=== PATIENT | female | born 1995 | race Caucasian/White ===

== ENCOUNTER 2024-01-25 08:18 | Emergency (ER) | payer OTHER, SELFPAY ==
[2024-01-25 08:27] VITALS: BP 129/75; PULSE 104; RESP 16; TEMP 37.4; O2SAT 100
--- NOTE | 2024-01-25 08:41 | ED.URI ---
HPI - URI/Sore Throat General Chief Complaint: Upper Respiratory Infection Stated Complaint: Fever/Sore Throat/Vomiting Time Seen by Provider: 01/25/24 08:42 History of Present Illness HPI Narrative: 29-year-old female presented for complaint of headache, body aches, sinus pressure/congestion, sore throat,cough, fever/chills. Onset yesterday. endorses an episode of vomiting this morning. Denies sob, wheezing, or lethargy. Took Excedrin. Related Data Home Medications Medication Instructions Recorded Confirmed lamotrigine 100 mg tablet mg 01/25/24 lisdexamfetamine 30 mg capsule mg 01/25/24 sumatriptan succinate 25 mg tablet mg PO 01/25/24 Allergies Allergy/AdvReac Type Severity Reaction Status Date / Time vancomycin Allergy Rash Verified 01/25/24 08:34 Review of Systems Review of Systems: CONSTITUTIONAL: reports body aches, fever, chills, or sweats. EYES: Denies visual changes, redness, or discharge. ENT: reports rhinorrhea, congestion, sore throat CARDIOVASCULAR: Denies chest pain, palpitations, or edema. RESPIRATORY: Denies dyspnea. GASTROINTESTINAL: Reports nausea, vomiting Denies abdominal pain, or diarrhea. SKIN: Denies rash, itching, or wounds. MUSCULOSKELETAL: Denies back pain, joint pain Exam Narrative: GENERAL: mildly Ill-appearing, no acute distress. EYES: conjunctivae clear ENT: Mucous membranes moist. TMs pearly bliss with normal light reflex bilaterally; no tragal tenderness. Oropharynx not erythematous without lesions. Tonsils not enlarged and without exudate. No drooling, no hoarseness, no trismus, uvula midline. No tripod positioning, hot potato voice, or soft palate swelling. NECK: Supple. No lymphadenopathy CHEST: Clear to auscultation, breath sounds equal. No respiratory distress, speaks in full sentences. HEART: Regular rate and rhythm. No murmur heard. SKIN: Warm, dry, no rash. NEURO: Alert and oriented x3. Course Course Emergency Course: Patient is aware of diagnosis, understands and agrees to treatment plan. Anticipatory guidance given. Patient agrees to follow-up as directed and is aware of reasons to seek care at the emergency department. Portions of this record may have been created with voice recognition software Level of Care: Express Care Visit Vital Signs Vital signs: Vital Signs Temperature 99.4 F 01/25/24 08:27 Pulse Rate 104 H 01/25/24 08:27 Respiratory Rate 16 01/25/24 08:27 Blood Pressure 129/75 01/25/24 08:27 Pulse Oximetry 100 01/25/24 08:27 Oxygen Delivery Room Air 01/25/24 08:27 Temperature 99.4 F 01/25/24 08:27 Pulse Rate 104 H 01/25/24 08:27 Respiratory Rate 16 01/25/24 08:27 Blood Pressure 129/75 01/25/24 08:27 Pulse Oximetry 100 01/25/24 08:27 Oxygen Delivery Room Air 01/25/24 08:27 MDM - URI/Sore Throat MDM Narrative Medical decision making narrative: pOS covid, neg Flu and strep result reviewed with pt. Advise supportive treatments. Patient is appropriate for outpatient treatment and follow-up. Differential Diagnosis Differential diagnosis: Likely upper respiratory infection, viral infection and pharyngitis Discharge Plan Discharge Clinical Impression: COVID-19 Patient Disposition: Home, Self-Care Condition: Stable Instructions: COVID-19 (Coronavirus Disease 2019) (ED) Additional Instructions: Your rapid COVID test was positive today. The following updated recommendations have been made by the CDC and local Health Departments, regarding COVID-19: - When people get sick with a respiratory virus, they stay home and away from others. - Return to normal activities when, for at least 24 hours, symptoms are improving overall, and if a fever was present, it has been gone without use of a fever-reducing medication. - Once people resume normal activities, they are encouraged to take additional prevention strategies for the next 5 days to curb disease spread, such as taking m
[2024-01-25 09:11] LABS: EDINFLUASCREEN Negative; EDINFLUBSCREEN Negative; EDSTREPNEGPOS1 Negative
== END 2024-01-25 09:20 | disposition home or self-care (01) ==
PROVIDERS: Emergency Provider Nurse Practitioner Family
DX: U07.1 COVID-19 (principal)
CPT/HCPCS: 87081; 87426; 87804; 87880; 99213; G0463

== ENCOUNTER 2025-01-14 13:22 | Emergency (ER) | payer OTHER, MEDICAID, SELFPAY ==
--- OUTSIDE RECORDS SUMMARY | 2025-01-14 13:32 | XMS_ITS | Encounter Summary ---
Author Organization [facility] Address [address] [place] [address] Care Team Providers Care Retaining Room Cutter Name Role Phone Maryuri Roblero DEPUTY INSURANCE COMMISSIONER Primary Care Provider [phone] Encounter Details Date Type Department Care Team ([facility] st Contact Info) Description 10/04/2021 MyChart Message Enc [facility] Medical Group Family and Sports Medicine - [place] [address] [place] [address] Maryuri Roblero, DEPUTY INSURANCE COMMISSIONER [address] [place] [address] Need to be seen Social History Tobacco Use Types Packs/Day Years Used Date Smoking Tobacco: Every Day Electronic Cigarettes Smokeless Tobacco: Never Alcohol Use Standard Drinks/Week Comments Yes 0 (1 standard drink = 0.6 oz pur e alcohol) ocassionally PHQ-2 Answer Date Recorded PHQ-2 Score - If the patient scores above 3, please move on to questions 3-9 2 09/13/2021 Comments No Sex and Gender Information Value Date Recorded Sex Assigned at Not on file Legal Sex Female 8:02 PM CDT Gender Identity Female 08/22/2021 6:22 AM CDT Sexual Orientation Straight 08/22/2021 6: 22 AM CDT COVID-19 Exposure Response Date Recorded In the last 10 days, have yo u been in contact with someone who was confirmed or suspected to have Coronavirus/COVID-19? No / Unsure 10/04/2021 9:21 AM CDT documented as of this encounter Functional Status * Calculated C-SSRS Risk Score (Lifetime/Recent) Answer Date of Assessment Author Status No Risk Indicated 10/04/2021 10:22 AM CDT Emily Max RN Active * [place] Suicide Severity Rating Scale (Screener/Recent Self-Report) Question Answer Date of Assessment Author Status 1. Wish to be (Past 1 Month) No 10/04/2021 10:22 AM [place] Deb Max RN Acti ve 2. Non-Specific Active Suicidal Thoughts (Past 1 Month) No 10/04/2021 10:22 AM CDT Deb Max RN Acti ve 6. Suicidal Behavior (Lifetime) No 10/04/2021 10:22 AM CDT Deb Max RN Acti ve documented as of this encounter Progress Notes * Janett Oh MA - 10/04/2021 11:45 AM CDT Patient sent this message this morning, then called the office and scheduled an apt. Pt saw deb this morning. Please see encounter from today for any questions. documented in this encounter Plan of Treatment Not on file documented as of this encounter Visit Diagnoses Not on filedocumented in this encounter Additional Health Concerns Assessment Noted Time PHQ-9 Depression Total Score: 14 022 3:56 PM CDT documented as of this encounter Care Teams Retaining Room Cutter Relationship Specialty Start Date End Date Maryuri Roblero NP [address] [place] [address] PCP - General Nurse Practitioner Family 08/23/21 documented as of this encounter
--- OUTSIDE RECORDS SUMMARY | 2025-01-14 13:32 | XMS_ITS | Encounter Summary ---
Author Organization [facility] Address [address] [place] [address] Phone Care Team Providers Care Telephone Installer Name Role Phone Bessie Patel MD Primary Care Provider [phone] Ilsa Lara MD, Bhavesh Gutiérrez Unavailable [phone] Maryuri Roblero NP Primary Care Provider [phone] Encounter Details Date Type Department Care Team (Latest Contact Info) Description 03/15/2017 Orders Only [facility] CONVERSION Scanning, Provider Social History Tobacco Use Types Packs/Day Years Used Date Smoking Tobacco: Never Comments Unknown Sex and Gender Information Value Date Recorded Sex Assigned at Not on file Legal Sex Female 10:10 PM OPERATIONS DIRECTOR Gender Identity Not on file Sexual Orientation Not on file documented as of this encounter Plan of Treatment Not on file documented as of this encounter Procedures Procedure Name Priority Date/Time Associated Diagnosis Comments OBSTETRIC/GYNECOLOGY ULTRASONOGRAPHY REPORT 03/15/2017 11:50 AM CDT documented in this encounter Results * OBSTETRIC/GYNECOLOGY ULTRASONOGRAPHY REPORT (03/15/2017 11:50 AM CDT) Anatomical Region Laterality Modality Ultrasound us Provider Scanning IMG OB US PROCEDURES Final Res ult documented in this encounter Visit Diagnoses Not on filedocumented in this encounter Additional Health Concerns Infection Onset Date Last Indicated Resolved Time COVID: Suspected 06/02/2020 06/02/2020 06/02/2020 11:41 PM OPERATIONS DIRECTOR COVID19 06/02/2020 06/02/2020 06/16/2020 3:07 AM OPERATIONS DIRECTOR COVID: Recovered Comment:Added based on recent COVID infection. 06/16/2020 06/22/2020 10/14/2020 3:05 AM C DT documented as of this encounter Care Teams Telephone Installer Relationship Specialty Start Date End Date Bessie Patel MD [address] [facility] [address] [place] [address] PCP - General 07/10/16 06/01/20 Maryuri Roblero NP [address] [place] [address] PCP - General 06/02/20 [place] [address] [address] [facility] [address] [facility] [address] [place] [address] Surgeon Plastic Surgery 12/25/19 documented as of this encounter
--- OUTSIDE RECORDS SUMMARY | 2025-01-14 13:33 | XMS_ITS | Encounter Summary ---
Author Organization [facility] Address [address] [place] [address] Care Team Providers Care Healthcare Administrator Name Role Phone Maryuri Roblero MACHINE BUNCH MAKER Primary Care Provider [phone] Encounter Details Date Type Department Care Team (Late st Contact Info) Description 08/19/2024 MyCClutcht Message Enc [facility] Medical Group Family and Sports Medicine - [place] [address] [place] [address] Maryuri Roblero, MACHINE BUNCH MAKER [address] [place] [address] Physical Social History Tobacco Use Types Packs/Day Years Used Date Smoking Tobacco: Former Electronic Cigarettes Quit: 05/25/2023 Passive Smoke Exposure: Past Smokeless Tobacco: Never Alcohol Use Standard Drinks/Week Comments Not Currently 0 (1 standard drink = 0.6 oz pur e alcohol) PHQ-2 Answer Date Recorded Patient Health Questionnaire-2 Score 0 12/27/2022 Comments No Sex and Gender Information Value Date Recorded Sex Assigned at Not on file Legal Sex Female 8:02 PM CDT Gender Identity Female 08/22/2021 6:22 AM CDT Sexual Orientation Straight 08/22/2021 6: 22 AM CDT documented as of this encounter Plan of Treatment Not on file documented as of this encounter Visit Diagnoses Not on filedocumented in this encounter Additional Health Concerns Assessment Noted Time PHQ-9 Depression Total Score: 13 023 2:12 PM CDT documented as of this encounter Care Teams Healthcare Administrator Relationship Specialty Start Date End Date Maryuri Roblero NP [address] [place] [address] PCP - General Nurse Practitioner Family 08/23/21 documented as of this encounter
--- OUTSIDE RECORDS SUMMARY | 2025-01-14 13:33 | XMS_ITS | Encounter Summary ---
Author Organization [facility] Address [address] [place] [address] Care Team Providers Care Key Person Name Role Phone Maryuri Roblero RESOURCE ROOM TEACHER Primary Care Provider [phone] Encounter Details Date Type Department Care Team ([facility] st Contact Info) Description 06/13/2022 MyChart Message Enc [facility] Medical Group Family and Sports Medicine - [place] [address] [place] [address] Maryuri Roblero, RESOURCE ROOM TEACHER [address] [place] [address] Question Social History Tobacco Use Types Packs/Day Years [...] Noted Time PHQ-9 Depression Total Score: 14 08/23/ 022 3:56 PM CDT documented as of this encounter Care Teams Key Person Relationship Specialty Start Date End Date Maryuri Roblero NP [address] [place] [address] PCP - General Nurse Practitioner Family 08/23/21 documented as of this encounter
--- OUTSIDE RECORDS SUMMARY | 2025-01-14 13:33 | XMS_ITS | Encounter Summary ---
Author Organization [facility] Address [address] [place] [address] Care Team Providers Care Inserter Name Role Phone Maryuri Roblero CHASSIS WIRER Primary Care Provider [phone] Encounter Details Date Type Department Care Team ([facility] st Contact Info) Description 12/26/2021 MyChart Message Enc [facility] Medical Group Family and Sports Medicine - [place] [address] [place] [address] Maryuri Roblero, CHASSIS WIRER [address] [place] [address] [place] Social History Tobacco Use Types Packs/Day Years [...] suspected to have Coronavirus/COVID-19? No / Unsure 12/15/2021 2:24 PM CDT documented as of this encounter Plan of Treatment Not on file documented as of this encounter Visit Diagnoses Not on filedocumented in this encounter Additional Health Concerns Assessment Noted Time PHQ-9 Depression Total Score: 14 022 3:56 PM CDT documented as of this encounter Care Teams Inserter Relationship Specialty Start Date End Date Maryuri Roblero, CHASSIS WIRER [address] [place] [address] PCP - General Nurse Practitioner Family 08/23/21 documented as of this encounter
--- OUTSIDE RECORDS SUMMARY | 2025-01-14 13:33 | XMS_ITS | Encounter Summary ---
Author Organization [facility] Address [address] [place] [address] Care Team Providers Care Cherry Picker Operator Name Role Phone Maryuri Roblero SUPERVISOR VOLUNTEER SERVICES Primary Care Provider [phone] Encounter Details Date Type Department Care Team (Late st Contact Info) Description 12/15/2021 MyChart Message Enc [facility] Medical Group Family and Sports Medicine - [place] [address] [place] [address] Maryuri Roblero, SUPERVISOR VOLUNTEER SERVICES [address] [place] [address] Medicine not covered Social History Tobacco Use Types Packs/Day Years [...] PM CDT documented as of this encounter Progress Notes * Meg Bean MA - 12/19/2021 12:12 PM CDT New script sent. See previous encounter. * Altagracia Grant CMA - 12/19/2021 10:51 AM CDT PA pending. * Maryuri Roblero NP - 12/18/2021 7:25 AM CDT Was the PA denied? * Meg Bean MA - 12/16/2021 10:28 AM CDT Patient is requesting a different medication medication since insurance will not cover current ADHDscript. documented in this encounter Plan of Treatment Not on file documented as of this encounter Visit Diagnoses Not on filedocumented in this encounter Additional Health Concerns Assessment Noted Time PHQ-9 Depression Total Score: 14 08/23/ 022 3:56 PM CDT documented as of this encounter Care Teams Cherry Picker Operator Relationship Specialty Start Date End Date Maryuri Roblero NP [address] [place] [address] PCP - General Nurse Practitioner Family 08/23/21 documented as of this encounter
--- OUTSIDE RECORDS SUMMARY | 2025-01-14 13:33 | XMS_ITS | Clinical Summary ---
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 Name Role Phone Ilsa Lara MD, Bhavesh Marla Unavailable [phone] Maryuri Roblero NP Primary Care Provider [phone] Allergies No known active allergies Medications hydrOXYzine (ATARAX) 10 mg tablet Take 1 tablet (10 mg total) by mouth as needed for itching Active doxycycline hyclate 100 mg capsule TAKE 1 CAPSULE BY MOUTH TWICE A DAY FOR 5 DAYS 2 Active Adderall XR 30 mg 24 hr capsule 3 Active lamoTRIgine (LaMICtal) 150 mg tablet Take 1 tablet (150 mg total) by mouth 2 (two) times a day 3 Active FLUoxetine (PROzac) 20 mg capsule Take 1 capsule (20 mg total) by mouth daily Active norelgestromin-ethi n.estradioL (ORTHO EVRA) 150-35 mcg/24 hrIndications:Pregn selena Contraception Apply 1 patch each week for 3 weeks, then remove for 1 week. 3 patch 12 3 Active ondansetron ODT (ZOFRAN-ODT) 4 mg disintegrating tablet Take 1 tablet (4 mg total) by mouth every 8 (eight) hours as needed for nausea or vomiting 20 tablet 3 Active Active Problems Problem Noted Date Diagnosed Date Bipolar disorder, in partial remission, most recent episode depressed 09/30/2020 PTSD (post-traumatic stress disorder) 09/30/2020 Gastroesophageal reflux disease without esophagi tis 09/27/2017 Surgical History Surgery Date Site/Laterality Comments MI CORRJ HLX VLGS BNCTY SESMDC W/DOUBLE OSTEOTOMY 05/21/2016 - 05/20/2017 Left Hallux Valgus (Bunion) Correction - (Added by [employer]) CHOLECYSTECTOMY 05/21/2017 - 05/20/2018 DILATION AND CURETTAGE OF UTERUS 05/21/2017 - 05/20/2018 FOOT SURGERY 05/21/2016 - 05/20/2017 Left bone spur COMBINED AUGMENTATION MAMMAPLASTY AND ABDOMINOPLASTY 12/20/2019 - 01/19/2020 VULVA SURGERY Medical History Medical History Date Comments Anxiety Migraines Delayed emergence from general anesthesia mild Addiction to drug (HCC) Anemia Depression GERD (gastroesophageal reflux disease) Kidney stone Obesity Allergic rhinitis Peptic ulceration Urinary tract infection Family History Medical History Relation Name Comments Alcohol abuse Father Hypertension Father Family history of hypertension - (Added by [employer]) Mental illness Father Breast cancer Maternal Grandmother Diabetes Mother Family history of diabetes mellitus - (Added by [employer]) Mental illness Mother Stroke Mother Family history of cerebrovascular accident (CVA) - (Added by [employer]) Breast cancer Other Heart disease Other Family history of cardiac disorder - Relation: Grandmother (Added by [employer]) Mental illness Sister Relation Name Status Comments Father Maternal Grandmother Mother Other Sister Social History Tobacco Use Types Packs/Day Years Used Date Smoking Tobacco: Every Day E-cigarettes Smokeless Tobacco: Never Tobacco Cessation:Ready to Q uit: Not Asked; Counseling Given: Not Answered Alcohol Use Standard Drinks/Week Comments Yes 0 (1 standard drink = 0.6 oz pur e alcohol) monthly or less Personal Safety Answer Date Recorded Have you ever been in or are you currently in a harmful physical or emotional relationship or is someone making you feel afraid or unsafe? Denies 07/17/2023 Comments No Sex and Gender Information Value Date Recorded Sex Assigned at Not on file Legal Sex Female 10:10 PM RN ADMIT Gender Identity Not on file Sexual Orientation Not on file Obstetrics History Para Term AB IAB SAB Ectopic Multiple Livin g Live Births 2 2 2 2 2 Date Outcome GA Total Labor Labor/2nd/3rd Weight Sex Type Anes PTL Janessa A1 A5 Name Clin 2014 36w 0d 2.211 kg (4 lb 14 oz) F Vag-S pont Y Livin g Complications:Pre eclampsia 2017 34w 4d 0h 29m 0h 04m/0h 25m 2.163 kg (4 lb 12.3 oz) F Vag-S pont Epidur al Y Livin g 9 9 SLOAN, GIRL DARBY Johns tracy Perales nski CNM Delivery Location:[facility] Last Filed Vital Signs Vital Sign Reading Time Taken Comments Blood Pressure 115/76 07/17/2023 7:05 PM RN ADMIT Pulse 79 07/17/2023 7:05 PM RN ADMIT Temperature 37.1 C (98.8 F) 07/17/2023 7:05 PM RN ADMIT Respiratory Rate 18 07/17/2023 7:05 PM RN ADMIT Oxygen Saturation 99% 07/17/2023 7:05 PM RN ADMIT Inhaled Oxygen Concentration - - Weight 64.8 kg (142 lb 13.7 oz) 07/17/2023 7:05 PM RN ADMIT Height 160 cm (5' 2.99) 09/05/2022 3:19 PM CDT Body Mass Index 25.31 09/05/2022 3:19 PM CDT Plan of Treatment Health Maintenance Due Date Last Done Comments Depression Screening 1995 Pneumococcal vaccine <65 (1 of 2 - PCV) 01/25/2016 Cervical Cancer Screening 06/01/2022 06/01/2021 Regular Well Visit/Exam 18-64 09/06/2023 09/05/2022, 06/01/2021 Covid-19 Vaccine (3 - 2023-2 5 season) 2024 09/30/2020, 05/19/2020 HPV Vaccines (1 - 3-dose SCD M series) 01/25/2024 Influenza Vaccine (#1) 2025 , 04/19/2020, 04/09/2019, Additional history exists DTaP/Tdap/Td Vaccine (8 - Td or Tdap) 06/24/2027 06/24/2017, 04/07/2016, 07/29/2014, Additional history exists Varicella Vaccines Completed 05/03/2007, 02/17/1998 Hepatitis B Screening Completed 06/23/2016 , 1995, 1995, Additional history exists Hepatitis C Screening Completed 09/06/2022 Medical Devices Implanted Type Area Ballpoint Pen Assembly Machine Operator Device Identifier Shelf Expiration Date Model / Serial / Lot [employer] Ssf-450 Natrelle Inspira Smooth Shell Surface Full Profile Implant 450cc Latex Free - [id number] - [id number] Implanted:Qty : 1 on 12/25/2019 by Bhavesh Rosenbaum Jr., MD at [facility] Right: Breast [employer] [id number] 08/31/2024 SSF-450 / [id number] / [id number] Description:*NO CHARGE IMPLA NT PROVIDED BY THE SURGEON KV* [employer] Ssf-485 Natrelle Inspira Smooth Shell Surface Soft Touch Implant 485cc Latex Free - [id number] - [id number] Implanted:Qty : 1 on 12/25/2019 by Bhavesh Rosenbaum Jr., MD at [facility] Left: Breast [employer] [id number] 06/25/2024 SSF-485 / [id number] / [id number] Description:*NO CHARGE IMPLA NT PROVIDED BY THE SURGEON KV* Procedures Procedure Name Priority Date/Time Associated Diagnosis Comments HEPATITIS PANEL, ACUTE Routine 09/06/2022 2:37 PM CDT Routine screening for STI (sexually transmitted infection) PAP WITH REFLEX TO HIGH RISK HPV Routine 06/01/2021 1:34 PM RN ADMIT Well woman exam Screening for STD (sexually transmitted disease) from Last 3 Months or Most Recently Relevant to Health Maintenance Results * Hepatitis panel, acute (09/06/2022 2:37 PM CDT) Hep A IgM Nonreactive Nonreactive [facility] Comment: Interpretive Data: If Hep A IgM Ab is reported as Equivocal, a new sample should be drawn in two weeks for testing. Current interpretive data was last revised on 19. Hep B core IgM Nonreactive Nonreactive [facility] Comment: Interpretive Data If HepB Core IgM Ab is reported as Equivocal, a new sample should be drawn in two weeks for testing. Current interpretive data was last revised on 19. Hep C Ab Nonreactive Nonreactive [facility] Comment: Interpretive Data Nonreactive: Antibodies to HCV not detected. Does NOT exclude the possibility of recent exposure to HCV. Equivocal: Equivocal for HCV antibodies. Supplemental molecular testing will be automatically performed to determine infection status in accordance with current CDC screening recommendations. Reactive: Positive for HCV antibodies. This may represent current or past HCV infection. Supplemental molecular testing will be automatically performed to determine current infection status in accordance with current CDC screening recommendations. Interpretive data was last revised on 2019. HepBsAg Nonreactive Nonreactive [facility] Blood 09/06/2022 2:37 PM CDT 09/06/2022 5:27 PM CDT us Tracey Jenkins NP LAB MICROBIOLOGY - GENERAL ORDER OFELIA Final Result [facility] [address] [facility] Department [place] [address] * (ABNORMAL) Pap with reflex to High Risk HPV (06/01/2021 1:34 PM RN ADMIT) Swab (Pap test) 06/01/2021 1 :34 PM RN ADMIT 06/03/2021 1:34 PM RN ADMIT Narrative PATHOLOGY [facility] - 06/10/2021 9:07 AM RN ADMIT [facility] Department of Pathology [address] [place], [place] [id number] Final Report Note to Patients: This report may contain a detailed description of human tissue sent by a health care provider to the laboratory for pathologic evaluation. The content of this report is essential for diagnosis and may provide important critical findings. This information may be unfamiliar to patients to review without a medical professional present. It is advised that the patient review this report in the presence of a health care provider who can answer questions and explain the details. Patient Name: CALE SLOAN Address: [address] [place] [address] Gender: F : 1995 (Age: 26) Service: Laboratory Location: [facility] #: [id number] Patient Type: [facility] SPECIMEN Taken: 06/01/2021 Received: 06/03/2021 Accessioned:: 06/06/2021 Reported: 06/10/2021 Physician(s): Sarah Ruth M.D. [facility] Diagnosis: Source of Specimen: Imaged Thinprep Pap Test w/ Reflex HPV - Home Health Cna Cytologic Material Specimen Adequacy: - Satisfactory for evaluation; endocervical/transformation zone component present General Category: - Epithelial cell abnormality Interpretation/Results: - Low grade squamous intraepithelial lesion (LSIL) encompassing HPV/mild dysplasia/FIONA I UDAY Dao(ASCP) Joe Trammell M.D. Report Electronically Reviewed and Signed Out By Joe Trammell M.D. 06/10/2021 09:07:18 Specimen(s) Received: A: Imaged Thinprep Pap Test w/ Reflex HPV - Home Health Cna Cytologic Material Clinical History: Contraceptive History: IUD The Pap test is a screening test used to aid in the detection of cervical cancer and its precursors. It should not be the sole means by which malignant and premalignant lesions are diagnosed. Both false negative and false positive results may occur. It also has poor sensitivity for the detection of endometrial lesions and should not be used to evaluate suspected endometrial abnormalities. For these reasons it is most important to obtain Pap tests at regular intervals. The performance characteristics of some immunohistochemical stains, fluorescence in-situ hybridization tests and immunophenotyping by flow cytometry cited in this report (if any) were determined by the Surgical Pathology Department at [facility] as part of an ongoing quality assurance coordinator program and in compliance with federally mandated regulations drawn from the Clinical Laboratory Improvement Act of 1988 (CLIA '88). Some of these tests rely on the use of analyte specific reagents and are subject to specific labeling requirements by the US Food and Drug Administration. Such diagnostic tests may only be performed in a facility that is certified by the Department of Health and Human Services as a high complexity laboratory under CLIA '88. The FDA has determined that such clearance or approval is not necessary. This test is used for clinical purposes. It should not be regarded as investigational or for research. Nevertheless, federal rules concerning the medical use of analyte specific reagents require that the following disclaimer be attached to the report: This test was developed and its performance characteristics determined by the Surgical Pathology Department [facility]. It has not been cleared or approved by the U. S. Food and Drug Administration. Sarah Ruth MD LAB CYTOLOGY ORDERABLES Final Re sult [facility] Organization Address City/State/ZIP Co de Phone Number [facility] from Last 3 Months or Most Recently Relevant to Health Maintenance Insurance [employer]PA [facility] CORE IDPA [place] [id number] [facility] C[facility] [employer] ACCESS IDPA Care Teams Mold Maker Apprentice Relationship Specialty Start Date End Date Maryuri Roblero NP [address] [place] [address] PCP - General 06/02/20 [place] [address] [address] [facility] [address] [facility] [address] [place] [address] Surgeon Plastic Surgery 12/25/19
--- OUTSIDE RECORDS SUMMARY | 2025-01-14 13:33 | XMS_ITS | Clinical Summary ---
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 180 Lozenge 1 03/04/20 24 Active Additional Information Patient not taking.Reported on 01/05/2025 pantoprazole (PROTONIX) 40 mg Tablet, Delayed Release (E.C.)Indication s:Gastroesophage al reflux disease, unspecified whether esophagitis present,Nausea,B loating Take 1 Tablet (40 mg) by mouth daily. 11/01/19 25 Active lamoTRIgine (LaMICtal) 100 mg tabletIndication s:Bipolar disorder, in partial remission, most recent episode depressed (CMS/HCC) TAKE 1 TABLET (100 MG) BY MOUTH DAILY. 100 Tablet 3 11/29/19 25 Active Ethinyl Estradiol-Norelg estrom (Xulane) 150-35 mcg/24 hr Patch Weekly PATCH Apply 1 Patch to skin as directed see administration instructions. 9 Patch 3 12/11/19 25 Active lisdexamfetamine (Vyvanse) 40 mg capsuleIndicatio ns:Attention deficit hyperactivity disorder (ADHD), combined type Take 1 Capsule (40 mg) by mouth daily in the morning. Max Daily Amount: 40 mg 30 Capsule 12/30/19 25 Active linaCLOtide (LINZESS) 72 mcg Capsule capsule Take 1 Capsule (72 mcg) by mouth daily before breakfast. 30 Capsule 3 01/06/20 25 Active atogepant (Qulipta) 60 mg Tablet Take 1 Tablet (60 mg) by mouth daily. 30 Tablet 3 01/09/20 25 Active galcanezumab-gnl m (Emgality Pen) 120 mg/mL Pen Injector Inject 1 mL by subcutaneous injection every 30 days. 1 mL 01/09/20 25 Active SUMAtriptan (IMITREX) 25 mg tabletIndication s:Chronic migraine without aura without status migrainosus, not intractable Take 1 Tablet (25 mg) by mouth 1 time daily as needed for Migraine. may repeat in 2 hours; max dose 200mg in 24 hours 9 Tablet 1 01/09/20 25 Active Linzess 290 mcg capsuleIndicatio ns:Irritable bowel syndrome with constipation Take 1 Capsule (290 mcg) by mouth daily before breakfast. 90 Capsule 1 10/28/19 25 025 Discontin ued(Alter srinath therapy prescribe d) SUMAtriptan (IMITREX) 25 mg tabletIndication s:Chronic migraine without aura without status migrainosus, not intractable Take 1 Tablet (25 mg) by mouth 1 time daily as needed for Migraine. may repeat in 2 hours; max dose 200mg in 24 hours 9 Tablet 1 11/01/19 25 025 Discontin ued(Reord er) lisdexamfetamine (Vyvanse) 40 mg capsuleIndicatio ns:Attention deficit hyperactivity disorder (ADHD), combined type Take 1 Capsule (40 mg) by mouth daily in the morning. Max Daily Amount: 40 mg 30 Capsule 11/27/19 25 025 Discontin ued(Reord er) galcanezumab-gnl m (Emgality Pen) 120 mg/mL Pen InjectorIndicati ons:Intractable chronic migraine with aura with status migrainosus Inject 1 mL by subcutaneous injection every 30 days. 1 mL 11 11/27/19 25 025 Discontin ued(Reord er) Active Problems Problem Noted Date Diagnosed Date Engages in binge consumption of alcohol 12/06/19 24 Attention deficit hyperactiv ity disorder (ADHD), combined type 11/01/2023 Overview (11/01/2023): Dx in 2019 Saw Psychiatry for dx. No longer following with them. Previously controlled with Vyvanse. Stopped medication six months ago when PCP stopped filling meds. Having trouble with focus at work. Does not tolerate Adderall. Chronic migraine without aur a without status migrainosus, not intractable 11/01/2023 Overview (11/01/2023): Dx at age 8 Has a CLEMONS several times a week Saw Neurology in the past Sumatriptan and Excedrin is helpful Tylenol and Motrin not helpful Nurtec and propranolol without improvement Transaminitis 07/14/2023 Overview (11/01/2023): Found during hospitalization on 06/2023 for ovarian hyperstem Abdominal ultrasound was normal Abdominal CT on 07/2023 showed: Hyperstimulated appearance of the ovaries without evidence of active bleeding. Increased prominence of splenic veins, raises concern for portal hypertension. Was referred to GI. Will establish with them 11/2023 Hemoperitoneum 07/12/2023 Overview (11/01/2023): Hospitalized 07/2023 for hemoperitoneum and ovarian hyerstem Following with [employer] Bipolar disorder, in partial remission, most recent episode depressed 09/30/2020 Overview (11/01/2023): Dx after suicide attempt 06/02/2019. Was taking Lamotrigine 150 mg BID and Prozac 20 mg. Her PCP stopped medication about six months ago. Mood is down. Denies SI. Has taken Trazodone, Celexa, Lexapro, Abilify, Propranolol, and hydroxyzine in the past PTSD (post-traumatic stress disorder) 09/30/2020 Overview (11/01/2023): Dx after suicide attempt 06/02/2019. Was following with a therapist. This was helpful. Needs to find a new one. THOMPSON (generalized anxiety disorder) 02/25/2019 Overview (11/01/2023): Dx after suicide attempt 06/02/2019. Was taking Fluoxetine. Stopped mediation six months ago when PCP stopped prescribing. Having a lot of anxiety. Gastroesophageal reflux disease without esophagi tis 02/25/2019 Overview (11/01/2023): Worsening with weight gain Currently taking Omeprazole 20 mg for the last month. Encounters Date Type Department Care Team Description 01/12/2025 Telephone [facility] [employer] - [facility] [address] [place] [address] Juanis Parada NP Labs Only (/) 01/08/2025 8:00 AM CDT Office Visit [facility] Neurology [address] [place] [address] [address] [place] [phone] Krystal Martino MD Chronic migraine without aura without status migrainosus, not intractable 01/07/2025 Telephone [facility] Gastroenterology [facility] [address] [facility] [address] [place] [phone] Clarita Vaughan PA Care Plan 01/05/2025 1:00 PM CDT Office Visit [facility] Gastroenterology [facility] [address] [facility] [address] [place] [address] Clariat Vaughan PA Irritable bowel syndrome with constipation (Primary Dx); Esophageal dysphagia 12/27/2024 Refill [facility] [address] [phone] Adam Monroy DO Attention deficit hyperactivity disorder (ADHD), combined type 12/24/2024 External Device Data STL ABSTRACTION Provider, Abstract 12/10/2024 8:15 AM CDT Telephone Check Up [facility] [employer] - [facility] [address] [place] [address] Juanis Parada NP Encounter for initial prescription of transdermal patch hormonal contraceptive device (Primary Dx) 12/05/2024 Orders Only [facility] [employer] - [facility] [address] [facility] [address] [place] [phone] Provider, Abstract 11/28/[address] [phone] Lena Hernandez NP Bipolar disorder, in partial remission, most recent episode depressed ([facility]/HCC) 11/25/[address] [phone] Adam Monroy DO Intractable chronic migraine with aura with status migrainosus 11/25/[address] [phone] Lena Hernandez NP Bipolar disorder, in partial remission, most recent episode depressed ([facility]/HCC) 11/25/[address] [phone] Wu Aguilera MD Attention deficit hyperactivity disorder (ADHD), combined type 11/18/2024 External Device Data STL ABSTRACTION Provider, Abstract 11/04/2024 Results Follow-Up [facility] [employer] - [facility] [address] [facility] [address] [place] [phone] Mary Wilson MD CERV/VAG CYTO AGE BASED SCREEN PAP W CT/NG, TRICH 11/04/2024 Results Follow-Up [address] [phone] Lena Hernandez NP CBC WITH DIFFERENTIAL, COMPREHENSIVE METABOLIC PANEL, TSH REFLEXIVE, Additional followed-up results: 2 10/31/2024 3:00 PM CDT Office Visit [address] [phone] Lena Hernandez NP Encounter for routine adult health examination without abnormal findings (Primary Dx); Gastroesophageal reflux disease, unspecified whether esophagitis present; Nausea; Bloating; Irregular periods; Initiation of OCP (BCP); Chronic migraine without aura without status migrainosus, not intractable; Bipolar disorder, in partial remission, most recent episode depressed (CMS/HCC); THOMPSON (generalized anxiety disorder); Transaminitis; Attention deficit hyperactivity disorder (ADHD), combined type; Screening for cardiovascular condition; Screening for diabetes mellitus 10/30/2024 12:30 PM CDT Office Visit [facility] [employer] - [facility] [address] [place] [phone] Mary Wilson MD Well woman exam with routine gynecological exam (Primary Dx); Screening for cervical cancer; Screening for HPV (human papillomavirus); Routine screening for STI (sexually transmitted infection) 10/24/2024 Refill [facility] Gastroenterology [facility] [address] [facility] [address] [place] [phone] Pari Humphrey DO Gastroesophageal reflux disease, unspecified whether esophagitis present; Nausea; Bloating; Irritable bowel syndrome with constipation 10/24/2024 Refill [facility] [address] [place] [phone] Adam Monroy DO Bipolar disorder, in partial remission, most recent episode depressed (CMS/HCC); Initiation of OCP (BCP); Intractable chronic migraine with aura with status migrainosus; Attention deficit hyperactivity disorder (ADHD), combined type from Last 3 Months Immunizations Immunization Administration Dates Next Due (ADACEL/BOOSTRIX)(10 YR UP) TDAP VACCINE, 0.5ML, IM 06/24/2017,04/07/2016,07/29/2014 (GARDASIL 9)(9-45 YRS) HUMAN PAPILLOMAVIRUS VACCINE, TYPES 6, 11, 16, 18, 31, 33, 45, 52, 58, NONAVALENT (9VHPV), 2 OR 3 DOSE, IM 09/21/2022 (INFANRIX)(6 WKS-6 YRS) DIPT HERIA, TETANUS TOXOIDS, AND ACCELLULAR PERTUSSIS VACCINE (DTAP), 0.5 ML IM 01/18/1999,1997,1997,06/03 (IPOL)(6 WKS AND UP) POLIOVI MARY VACCINE, INACTIVATED (IPV), 3 DOSE, SUBCUT OR IM 04/07/2016 (M-M-R II/PRIORIX)(12 MO UP) MEASLES, MUMPS AND RUBELLA VIRUS VACCINE, 0.5 ML IM/SUBCUT 06/23/2016,04/07/2016,02/17/1998 (PFIZER)(12 YR UP) COVID-19 VACCINE - EMERGENCY USE AUTHORIZATION, MRNA, [id number](PF) 30 MCG/0.3 ML IM SUSP 05/19/2020 (PROQUAD)(12 MOS-12 YRS)JERI LES, MUMPS, RUBELLA, AND VARICELLA VIRUS VACCINE. 0.5 ML, SUBCUT 02/17/1998 (RECOMBIVAX HB/ENGERIX-B)(0- 19 YRS) HEPATITIS B VACCINE 5 MCG/0.5 ML OR 10 MCG/0.5 ML PED OR ADOL 3 DOSE (PF), IM 06/23/2016,04/07/2016,1997 (VARIVAX)(12 MOS UP)VARICELL A VIRUS VACCINE (PF) 0.5 ML, SUB CUT 05/03/2007 Adenovirus Vaccine Type 4 04/07/2016 HIB, Unspecified Formulation 01/18/1999,07/30/18 98 Hepatitis A Vaccine 05/03/2007 Hepatitis B and Haemophilus Influenzae Type B Vaccine (Hib-HepB)IM 1997,1997 INFLUENZA VACCINE QUADRIVALE NT 6 MOS UP PF IM 04/29/2018 INFLUENZA VACCINE TRIVALENT SPLIT VIRUS, (6 MOS UP), 0.5ML (PF), IM 03/04/2024 Influenza Seasonal Unspecifi ed Formulation IM 04/19/2020,04/20/2017,07/13/2015 Influenza Vaccine Tri Split 4+ Pf Im 04/07/2016 Influenza, Unspecified Formulation 02/24/2021, Meningococcal Polysaccharide Vaccine SQ 04/07/2016 Poliovirus Vaccine Live Oral SCHIP 1997,,1997 Family History Medical History Relation Name Comments Healthy Brother 1 Jaylen Headaches Brother 2 Clay (Rodrigo) Healthy Brother 2 Clay (Rodrigo) Healthy Daughter 1 Bri Anxiety Daughter 2 Isabel Healthy Daughter 2 Isabel Seizure Disorder Daughter 2 Isabel Anxiety Father Depression Father Headaches Father Hypertension Father Obesity Father Breast Cancer Maternal Grandmother ADHD Mother Mom was adopted Anxiety Mother Mom was adopted Depression Mother Mom was adopted Obesity Mother Mom was adopted Diabetes Paternal Grandfather Hypertension Paternal Grandfather Anxiety Sister 1 Alivia Depression Sister 1 Alivia Healthy Sister 1 Alivia Obesity Sister 1 Alivia Healthy Sister 2 Geni Healthy Sister 3 Maddie Colon Cancer Neg Hx Ovarian Cancer Neg Hx Relation Name Status Comments Brother 1 Jaylen Alive Brother 2 Clay (Rodrigo) Alive Daughter 1 Bri Alive Daughter 2 Isabel Alive Father Alive Maternal Grandfather unknown Other Maternal Grandmother Alive Mother Mom was adopted Alive Paternal Grandfather Alive Paternal Grandmother Alive Sister 1 Alivia Alive Sister 2 Geni Alive Sister 3 Maddie Alive Social History Tobacco Use Types Packs/Day Years Used Date Smoking Tobacco: Former Cigarettes 0.5 1 Passive Smoke Exposure: Never Smokeless Tobacco: Never Tobacco Cessation:Counseling Given: Not Answered Alcohol Use Standard Drinks/Week Comments Not Currently 0 (1 standard drink = 0.6 oz pur e alcohol) several drinks twice year Feeling Safe Answer Date Recorded Are you in a relationship wi th someone who hurts you emotionally and/or physically? No 05/02/2024 Comments No Sex and Gender Information Value Date Recorded Sex Assigned at Female 12/04/2023 8:39 AM CDT Legal Sex Female 9:55 AM CDT Gender Identity Female 12/04/2023 8:39 AM CDT Sexual Orientation Not on file Last Filed Vital Signs Vital Sign Reading Time Taken Comments Blood Pressure 122/82 01/08/2025 8:05 AM CDT Pulse 72 01/08/2025 8:05 AM CDT Temperature 37.4 C (99.3 F) 10/31/2024 2:49 PM CDT Respiratory Rate 18 05/02/2024 9:00 AM CUSTOMS DIRECTOR Oxygen Saturation 99% 01/08/2025 8:05 AM CDT Inhaled Oxygen Concentration - - Weight 67.6 kg (149 lb) 01/12/2025 3:41 PM CDT Height 160 cm (5' 3) 01/12/2025 3:41 PM CDT Body Mass Index 26.39 01/12/2025 3:41 PM CDT Plan of Treatment Upcoming Encounters Date Type Department Care Team (Latest Contact Info) Description 8:00 AM CDT Hospital Encounter [facility] [address] [place] [phone] Pari Humphrey, DO [address] [facility] [address] [place] [phone] Esophageal dysphagia 5 8:00 AM CDT - 5 8:30 AM CDT Surgery [facility] [address] [place] [phone] Pari Humphrey, DO [address] [facility] [address] [place] [address] ESOPHAGOGASTRODUODENOSCOPY 5 10:15 AM CUSTOMS DIRECTOR Procedure visit [facility] [employer] CLE[employer]ER - [address] [facility] [address] [place] [phone] Juanis Parada, IMAGING ANALYST [address] [facility] [address] [place] [phone] 5 8:40 AM CUSTOMS DIRECTOR Office Visit [facility] Gastroenterology [facility] [address] [facility] [address] [place] [phone] Pari Humphrey, DO [address] [facility] [address] [place] [address] 5 9:45 AM CUSTOMS DIRECTOR Office Visit [facility] Neurology [address] [place] [phone] [place] [phone] [place] [address] [address] Scheduled Procedures Name Priority Associated Diagnoses Date/Ti me ESOPHAGOGASTRODUODENOSCOPY Esophageal dysphagia 02/03/2025 8:00 AM CDT Health Maintenance Due Date Last Done Comments HPV/Cotest (21-29) 2018 HPV VACCINES (2 - 3-dose series) 10/19/2022 09/22/19 COVID-19 Vaccine ( - 2023-2 5 season) 2024 10/30/2021, 09/30/2020, 05/19/2020 INFLUENZA VACCINE (#1) 2024 , 04/19/2020, 04/29/2018, Additional history exists DTAP/TDAP/TD VACCINES (8 - T d or Tdap) 06/24/2027 06/24/2017, 04/07/2016, 07/29/2014, Additional history exists CERVICAL CANCER SCREENING 10/31/2027 PAP SMEAR 10/31/2027 10/30/2024 HEPATITIS B VACCINES Completed 06/23/2016, 04/07/2016, 1997, Additional history exists Procedures Procedure Name Priority Date/Time Associated Diagnosis Comments BRCA1/BRCA2 Routine 11/10/2024 11:57 AM CDT LIPID PANEL Routine 11/03/2024 8:36 AM CDT Screening for cardiovascular condition HEMOGLOBIN A1C Routine 11/03/2024 8:36 AM CDT Screening for diabetes mellitus TSH REFLEXIVE Routine 11/03/2024 8:36 AM CDT Screening for cardiovascular condition COMPREHENSIVE METABOLIC PANEL Routine 11/03/2024 8:36 AM CDT Screening for cardiovascular condition CBC WITH DIFFERENTIAL Routine 11/03/2024 8:36 AM CDT Screening for cardiovascular condition CERV/VAG CYTO AGE BASED SCREEN PAP W CT/NG, TRICH Routine 10/30/2024 12:35 PM CDT Screening for cervical cancer Screening for HPV (human papillomavirus) Routine screening for STI (sexually transmitted infection) from Last 3 Months Results * BRCA1/BRCA2 (11/10/2024 11:57 AM CDT) Blood us Abstract Provider CHEMISTRY ORDERABLES Final Res ult [facility] [employer] - [facility] CLIA# [id number] [address] [address] * TSH REFLEXIVE (11/03/2024 8:36 AM CDT) TSH 2.47 mIU/L [facility] Comment: Reference Range > or = 20 Years 0.40-4.50 Ranges First trimester 0.26-2.66 Second trimester 0.55-2.73 Third trimester 0.43-2.91 FASTING:YES FASTING: YES Test Performed at: [facility] [address] [place] [address] Laverne Brandt MD Blood 11/03/2024 8:36 AM CDT 11/03/2024 8:37 AM CDT us Lena Hernandez IMAGING ANALYST CHEMISTRY ORDERABLES Final Resul t [facility] [phone] [facility] [address] [place] [address] * (ABNORMAL) CBC WITH DIFFERENTIAL (11/03/2024 8:36 AM CDT) WBC 6.2 3.8 - 10.8 Thousand/u L [facility] RBC 4.56 3.80 - 5.10 Million/uL [facility] HEMOGLOBIN 12.7 11.7 - 15.5 g/dL [facility] HEMATOCRIT 40.6 35.0 - 45.0 % [facility] MCV 89.0 80.0 - 100.0 fL [facility] MCH 27.9 27.0 - 33.0 pg [facility] MCHC 31.3(L) 32.0 - 36.0 g/dL [facility] Comment: For adults, a slight decrease in the calculated MCHC value (in the range of 30 to 32 g/dL) is most likely not clinically significant; however, it should be interpreted with caution in correlation with other red cell parameters and the patient's clinical condition. RDW 12.4 11.0 - 15.0 % [facility] PLATELETS 335 140 - 400 Thousand/u L [facility] MPV 9.5 7.5 - 12.5 fL [facility] NEUTROPHIL ABSOLUTE 3,751 1,500 - 7,800 cells/uL [facility] LYMPHOCYTE ABSOLUTE 1,996 850 - 3,900 cells/uL [facility] MONOCYTE ABSOLUTE 347 200 - 950 cells/uL [facility] EOSINOPHIL ABSOLUTE 68 15 - 500 cells/uL [facility] BASOPHILS ABSOLUTE 37 0 - 200 cells/uL [facility] NEUTROPHIL 60.5 % [facility] LYMPHOCYTES 32.2 % [facility] MONOCYTE 5.6 % [facility] EOSINOPHILS 1.1 % [facility] BASOPHILS 0.6 % [facility] Comment: FASTING:YES FASTING: YES Test Performed at: [facility] [address] [place] [address] Laverne Brandt MD Blood 11/03/2024 8:36 AM CDT 11/03/2024 8:37 AM CDT us Lena Hernandez NP HEMATOLOGY ORDERABLES Final Resu lt [facility] [phone] [facility] [address] [address] [place] [address] * HEMOGLOBIN A1C (11/03/2024 8:36 AM CDT) HEMOGLOBIN A1C 5.5 <5.7 % of total Hgb [facility] Comment: For the purpose of screening for the presence of diabetes: <5.7% Consistent with the absence of diabetes 5.7-6.4% Consistent with increased risk for diabetes (prediabetes) > or =6.5% Consistent with diabetes This assay result is consistent with a decreased risk of diabetes. Currently, no consensus exists regarding use of hemoglobin A1c for diagnosis of diabetes in children. According to [place] Diabetes Association (ADA) guidelines, hemoglobin A1c <7.0% represents optimal control in non- diabetic patients. Different metrics may apply to specific patient populations. Standards of Medical Care in Diabetes(ADA). ESTIMATED AVERAGE GLUCOSE (MG/DL) 111 mg/dL [facility] ESTIMATED AVERAGE GLUCOSE (MMOL/L) 6.2 mmol/L [facility] Comment: FASTING:YES FASTING: YES Test Performed at: [facility] [address] [place] [address] RosiNelson Brandt Blood 11/03/2024 8:36 AM CDT 11/03/2024 8:37 AM CDT us Lena Hernandez NP CHEMISTRY ORDERABLES Final Resul t [facility] [phone] [facility] [address] [place] [address] * (ABNORMAL) LIPID PANEL (11/03/2024 8:36 AM CDT) CHOLESTEROL 192 <200 mg/dL [facility] HDL 56 > OR = 50 mg/dL [facility] TRIGLYCERIDE 119 <150 mg/dL [facility] LDL CALCULATED 113(H) mg/dL (calc) [facility] Comment: Reference range: <100 Desirable range <100 mg/dL for primary prevention; <70 mg/dL for patients with CHD or diabetic patients with > or = 2 CHD risk factors. LDL-C is now calculated using the Melanie calculation, which is a validated novel method providing better accuracy than the Friedewald equation in the estimation of LDL-C. Shailesh BRADEN et al. ILEANA. 2013;310(19): 9774-4754 (http://education.Exosect/faq/WHP344) CHOL/HDL RATIO 3.4 <5.0 (calc) [facility] NON-HDL CHOLESTEROL 136(H) <130 mg/dL (calc) [facility] Comment: For patients with diabetes plus 1 major ASCVD risk factor, treating to a non-HDL-C goal of <100 mg/dL (LDL-C of <70 mg/dL) is considered a therapeutic option. Test Performed at: [facility] [address] [facility] [address] Laverne Brandt MD Blood 11/03/2024 8:36 AM CDT 11/03/2024 8:37 AM CDT us Lena Hernandez NP CHEMISTRY ORDERABLES Final Resul t [facility] [phone] [facility] [place] [address] * COMPREHENSIVE METABOLIC PANEL (11/03/2024 8:36 AM CDT) GLUCOSE 93 65 - 99 mg/dL [facility] Comment: Fasting reference interval BUN 15 7 - 25 mg/dL [facility] CREATININE 0.87 0.50 - 0.96 mg/dL [facility] GFR 94 > OR = 60 mL/min/1. 73m2 [facility] BUN/CREAT RATIO SEE NOTE: (calc) [facility] Comment: Not Reported: BUN and Creatinine are within reference range. SODIUM 137 135 - 146 mmol/L [facility] POTASSIUM 4.1 3.5 - 5.3 mmol/L [facility] CHLORIDE 104 98 - 110 mmol/L [facility] CO2 25 20 - 32 mmol/L [facility] CALCIUM 9.2 8.6 - 10.2 mg/dL [facility] TOTAL PROTEIN 6.8 6.1 - 8.1 g/dL [facility] ALBUMIN 4.1 3.6 - 5.1 g/dL [facility] GLOBULIN 2.7 1.9 - 3.7 g/dL (calc) [facility] ALBUMIN/GLOBULIN RATIO 1.5 1.0 - 2.5 (calc) [facility] BILIRUBIN TOTAL 0.3 0.2 - 1.2 mg/dL [facility] ALKALINE PHOSPHATASE 62 31 - 125 U/L [facility] AST 14 10 - 30 U/L [facility] ALT 15 6 - 29 U/L [facility] Comment: FASTING:YES FASTING: YES Test Performed at: [facility] [address] [place] [address] Laverne Brandt MD Blood 11/03/2024 8:36 AM CDT 11/03/2024 8:37 AM CDT us Lena Hernandez IMAGING ANALYST CHEMISTRY ORDERABLES Final Resul t [facility] [phone] [facility] [address] * CERV/VAG CYTO AGE BASED SCREEN PAP W CT/NG, TRICH (10/30/2024 12:35 PM CDT) COMMENT (PAP): [facility] [facility] Comment: This order for age-based cervical cancer and STI screening follows ACOG guidelines(PB 168, 140, XAS305). See individual assays for performing site location. CLINICAL INFORMATION [facility] Comment:None given LAST MENSTRUAL PERIOD [facility] Comment:[id number] PREV PAP: [employer] Comment:NONE GIVEN PREV BX: [employer] Comment:NONE GIVEN SOURCE [employer] Comment:Endocervix ADEQUACY: [employer] Comment: Satisfactory for evaluation. Endocervical/transformation zone component present. PAP INTERP [facility] Comment: Cytology Results: Negative for intraepithelial lesion or malignancy. COMMENT (PAP TEST) Q uest [facility] Comment: This Pap test has been evaluated with computer assisted technology. INDUSTRIAL ELECTRICAL ENGINEER: Sandip iqbal [facility] Comment: MEN, CT(ASCP) CT Screening Location: [place] [id number] EXPLANATORY NOTE [facility] Comment: EXPLANATORY NOTE: The Pap is a screening test for cervical cancer. It is not a diagnostic test and is subject to false negative and false positive results. It is most reliable when a satisfactory sample, regularly obtained, is submitted with relevant clinical findings and history, and when the Pap result is evaluated along with historic and current clinical information. CHLAMYDIA TRACHOMATIS RNA, TMA, UROGENITAL NOT DETECTED NOT DETECTED [facility] NEISSERIA GONORRHOEAE RNA, TMA, UROGENITAL NOT DETECTED NOT DETECTED [facility] COMMENT INFECTIOUS DISEASE [facility] Comment: The analytical performance characteristics of this assay, when used to test SurePath(TM) specimens have been determined by [employer]. The modifications have not been cleared or approved by the FDA. This assay has been validated pursuant to the CLIA regulations and is used for clinical purposes. For additional information, please refer to https://Gameyola.Pact/faq/AVF088 (This link is being provided for information/ educational purposes only.) TRICHOMONAS VAGINALIS,QUALITAT GATO,PAP VIAL NOT DETECTED NOT DETECTED [facility] Comment: The analytical performance characteristics of this assay have been determined by [employer]. The modifications have not been cleared or approved by the FDA. This assay has been validated pursuant to the CLIA regulations and is used for clinical purposes. For additional information, please refer to [email or web address].Pact/ faq/Trichomonastma (This link is being provided for information/ educational purposes only.) Test Performed at: [address] [address] [facility] SWAB OF ENDOCERVIX / Unknown 10/30/2024 12:35 PM CDT 10/31/2024 8:26 PM CDT Mary Wilson MD PATHOLOGY/CYTOLOGY ORDERABLES Final Result [facility] [phone] [place] [address] [place] [address] from Last 3 Months Insurance RX EXPRESS [employer] Express RX [facility] Commercial MEDICAID [place] OPEN CHOICE PPO [facility] EPO Advance Directives For more information, please contact: [phone] * Full Code (Latest Code Status on File) Date Activated Date Inactivated Comments 05/02/2024 7:07 AM 05/02/2024 11:33 AM * Full Code Date Activated Date Inactivated Comments 07/12/2023 6:51 AM 07/15/2023 6:13 PM Care Teams Wafer Substrate Tester Relationship Specialty Start Date End Date Adam Monroy DO [address] [address] PCP - General Family Practice 06/12/23
--- OUTSIDE RECORDS SUMMARY | 2025-01-14 13:33 | XMS_ITS | Encounter Summary ---
Author Organization [facility] Address [address] [place] [address] Care Team Providers Care Quill Layer Name Role Phone Maryuri Roblero WOOD PRODUCTS MANUFACTURER Primary Care Provider [phone] Encounter Details Date Type Department Care Team ([facility] st Contact Info) Description 11/28/2022 MyChart Message Enc [facility] Family and Sports Medicine - [place] [address] [place] [address] Maryuri Roblero WOOD PRODUCTS MANUFACTURER [address] [place] [address] Migraine Med Social History Tobacco Use Types Packs/Day Years Used Date Smoking Tobacco: Every Day Electronic Cigarettes Smokeless Tobacco: Never Alcohol Use Standard Drinks/Week Comments Yes 0 (1 standard drink = 0.6 oz pur e alcohol) ocassionally PHQ-2 Answer Date Recorded Patient Health Questionnaire-2 Score 3 09/21/2022 Comments No Sex and Gender Information Value [...] documented as of this encounter Care Teams Quill Layer Relationship Specialty Start Date End Date Maryuri Roblero WOOD PRODUCTS MANUFACTURER [address] [place] [address] PCP - General Nurse Practitioner Family 08/23/21 documented as of this encounter
--- OUTSIDE RECORDS SUMMARY | 2025-01-14 13:33 | XMS_ITS | Encounter Summary ---
Author Organization [facility] Address [address] [place] [address] Care Team Providers Care Welding Robot Operator Name Role Phone Maryuri Roblero ROOM SERVICE SERVER Primary Care Provider [phone] Encounter Details Date Type Department Care Team ([facility] st Contact Info) Description 12/15/2021 MyChart Message Enc [facility] Medical Group Family and Sports Medicine - [place] [address] [place] [address] Maryuri Roblero, ROOM SERVICE SERVER [address] [place] [address] Labs Social History Tobacco Use Types Packs/Day Years [...] documented as of this encounter Care Teams Welding Robot Operator Relationship Specialty Start Date End Date Maryuri Roblero, AGRY [address] [place] [address] PCP - General Nurse Practitioner Family 08/23/21 documented as of this encounter
--- OUTSIDE RECORDS SUMMARY | 2025-01-14 13:33 | XMS_ITS | Encounter Summary ---
Author Organization [facility] Address [address] [place] [address] Care Team Providers Care Marine Steward Name Role Phone Maryuri Roblero OPERATIONS CONSULTANT Primary Care Provider [phone] Encounter Details Date Type Department Care Team (Late st Contact Info) Description 02/19/2023 Sevencet Message Enc [facility] Medical Group Multispecialty Care - [facility] [address] [place] [phone] Angeline Roman, GARY [address] [place] [address] Nothing is working Social History Tobacco Use Types Packs/Day Years [...] documented as of this encounter Care Teams Marine Steward Relationship Specialty Start Date End Date Maryuri Roblero, OPERATIONS CONSULTANT [address] [place] [address] PCP - General Nurse Practitioner Family 08/23/21 documented as of this encounter
--- OUTSIDE RECORDS SUMMARY | 2025-01-14 13:33 | XMS_ITS | Clinical Summary ---
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 Gender Identity Not on file Sexual Orientation Not on file Plan of Treatment Health Maintenance Due Date Last Done Comments Hepatitis C Virus (HCV) Screening 1997 Pap Smear 2018 SARS-COV-2 Immunization ( season) 2024 09/30/2020, 05/19/2020 Human Papillomavirus (HPV) Immunization (1 - 3-dose SCDM series) 01/25/2024 Influenza Immunization (#1) 01/19/20250 11/2020, 04/09/2019, 04/29/2018, Additional history exists Respiratory Syncytial Virus (RSV) Immunization (Adult) (1 - 1-dose 75+ series) 01/25/2072 Hepatitis B Immunization Completed 998, 1997, 1997 DTaP/Tdap/Td Immunization Discontinued 2017, 07/29/2014, 01/18/1999, Additional history exists TdaP Immunization Completed 06/24/2017, 07/29/2014 Meningococcal Immunization (ACWY) Aged Out No longer eligible based on patient's age to complete this topic Pneumococcal Immunization Combined Aged Out No longer eligible based on patient's age to complete this topic Rotavirus Immunization Aged Out No lo nger eligible based on patient's age to complete this topic Insurance [facility] MEDICAID [place] Care Teams Party Planner Relationship Specialty Start Date End Date Maryuri Roblero APN [address] [place] [address] PCP - General Advanced Practice Nurse 08/06/23 Gemma Dc MD [address] [place] [address] [id number] Consulting Physician Oncology 08/06/23
--- OUTSIDE RECORDS SUMMARY | 2025-01-14 13:33 | XMS_ITS | Encounter Summary ---
Author Organization [facility] Address [address] [place] [address] Care Team Providers Care Microstrategy Architect Developer Name Role Phone Maryuri Roblero NP Primary Care Provider + None, Provider Primary Care Provider Unavaila Maryuri Honeycutt NP Primary Care Provider + Encounter Details Date Type Department Care Team (Late st Contact Info) Description 10/23/2018 BRIDGE IRONWORKER HELPER ONLY [facility] Medical Group Priority Care - [address] [place] [address] Scanned, Documents Social History Tobacco Use Types Packs/Day Years Used Date Smoking Tobacco: Never Smokeless Tobacco: Never Alcohol Use Standard Drinks/Week Comments Yes 0 (1 standard drink = 0.6 oz pur e alcohol) ocassionally Comments No Sex and Gender Information Value Date Recorded Sex Assigned at Not on file Legal Sex Female 8:02 PM CDT Gender Identity Female 08/22/2021 6:22 AM CDT Sexual Orientation Straight 08/22/2021 6: 22 AM CDT documented as of this encounter OR Notes * Op Note - Zscanned, Documents - 10/23/2018 12:00 AM CDT CALE SLOAN MD: ACCT: [id number] ADMIT/SERVICE DATE: 10/23/18 DISCHARGE DATE: 10/23/18 : 1997 PT TYPE: DEP SDC SEX: F ORD SITE: [facility] CHART DOCUMENT OPERATION RECORD DATE OF OPERATION: 10/23/2018 23-YEAR-OLD FEMALE COMPLAINS OF ABDOMINAL PAIN, GERD SYMPTOMS AND RECTAL BLEEDING. SHE'S IN FOR AN UPPER AND LOWER ENDOSCOPY. EGD: INFORMED CONSENT OBTAINED EARLIER. PATIENT WAS SEEN IN THE OR, PLACED IN THE SUPINE LATERAL DECUBITUS POSITION AND SEDATED UNDER MAC ANESTHESIA. THE GIF-190 GASTROSCOPE WAS THEN LUBRICATED AND INSERTED INTO THE HYPOPHARYNX AND ADVANCED BY DIRECT TECHNIQUE. UPPER, MIDDLE, DISTAL ESOPHAGUS WAS COMPLETELY NORMAL. STOMACH DISTENDED WELL. RETROFLEXED VIEWS OF THE CARDIA, FUNDUS, ANGULARIS REVEALED NO ABNORMALITIES. ANTRUM LOOKED NORMAL. THE FIRST AND SECOND PARTS OF THE DUODENUM LOOK NORMAL. FINDINGS: COMPLETELY NORMAL UPPER ENDOSCOPY. COLONOSCOPY: RECTAL EXAM NEGATIVE. PCF-190 COLONOSCOPE LUBRICATED AND INSERTED INTO THE RECTUM AND ADVANCED ALL THE WAY TO THE CECUM. BOWEL PREP WAS EXCELLENT. CECUM WAS IDENTIFIED BY THE ILEOCECAL VALVE AND APPENDICEAL ORIFICE. THE CECUM, ASCENDING COLON, TRANSVERSE COLON, DESCENDING COLON, SIGMOID COLON AND RECTUM ARE ALL CAREFULLY VISUALIZED UPON WITHDRAWAL AND FOUND TO BE NORMAL. RETROFLEXION AT THE ANAL VERGE REVEALED JUST MILD HEMORRHOIDS. FINDINGS: MILD HEMORRHOIDS LIKELY SOURCE OF RECTAL BLEEDING. OTHERWISE, NEGATIVE COLONOSCOPY TO THE CECUM WITH EXCELLENT BOWEL PREP. ELECTRONICALLY SIGNED BY OLIVER DALAL MD 10/25/2018 07:45 A ALISHA/SHEILA 10/23/2018 10/23/2018 02:26 P JOB NO: [id number] DOC NO: [id number] CC: CYNDI TA MD documented in this encounter Plan of Treatment Not on file documented as of this encounter Visit Diagnoses Not on filedocumented in this encounter Additional Health Concerns Infection Onset Date Last Indicated Resolved Time COVID-19 Rule Out 01/20/2020 01/20/2020 01/22/2020 7:35 PM CDT COVID-19 Rule Out 05/21/2020 05/21/2020 05/21/2020 10:41 PM SURGICAL SCHEDULER COVID-19 Rule Out 01/19/2021 01/19/2021 01/20/2021 1:11 PM CDT COVID-19 Rule Out 06/10/2021 06/10/2021 06/11/2021 2:50 AM SURGICAL SCHEDULER documented as of this encounter Care Teams Microstrategy Architect Developer Relationship Specialty Start Date End Date Maryuri Roblero NP PCP - General 10/03/16 01/18/21 None, Provider, PCP - General 01/19/21 08/22/21 Maryuri Roblero IT MANAGER [address] [place] [address] PCP - General Nurse Practitioner Family 08/23/21 documented as of this encounter
--- OUTSIDE RECORDS SUMMARY | 2025-01-14 13:33 | XMS_ITS | Clinical Summary ---
Author Organization [facility] Address [facility] [place] [address] Care Team Providers Care Lead Software Development Engineer Name Role Phone Maryuri Roblero NP Primary Care Provider [phone] Allergies Active Allergy Reactions Criticality Noted Date Comments Vancomycin Redness 11/20/2022 Medications valACYclovir 500 MG tablet Take 1 tablet (500 mg total) by mouth daily. 09/16/19 Active hydrOXYzine (ATARAX) 10 MG tabletIndications: Generalized anxiety disorder Take 1 tablet (10 mg total) by mouth every 8 (eight) hours as needed for Itching. 30 tablet 2 03/28/20 Active Additional Information Patient not taking.Reported on 05/07/2023 propranolol (INDERAL) 10 MG tabletIndications: Intractable chronic migraine without aura and with status migrainosus Take 1 tablet (10 mg total) by mouth 2 (two) times daily. 60 tablet 5 12/16/19 Active Additional Information Patient not taking.Reported on 05/07/2023 rimegepant (NURTEC) 75 MG disintegrating tabletIndications: Chronic migraine with aura Take 1 tablet (75 mg total) by mouth as needed for Migraine. Max of 1 tablet (75 mg) in 24 hours. 8 tablet 3 01/13/20 Active Additional Information Patient not taking.Reported on 05/07/2023 Erenumab-aooe (AIMOVIG) 70 MG/ML Solution Auto-injector Inject 70 mg into the skin. 11/30/19 Active lamoTRIgine (LAMICTAL) 150 MG tabletIndications: Bipolar disorder, in partial remission, most recent episode depressed ([facility]) Take 1 tablet (150 mg total) by mouth 2 (two) times daily. 180 tablet 05/04/20 Active Additional Information Patient not taking.Reported on 07/16/2023 FLUoxetine (PROZAC) 20 MG capsuleIndications :Bipolar disorder, in partial remission, most recent episode depressed ([facility]) Take 1 capsule (20 mg total) by mouth daily. 90 capsule 05/04/20 Active Additional Information Patient not taking.Reported on 07/16/2023 SUMAtriptan (IMITREX) 50 MG tabletIndications: Chronic migraine with aura and with status migrainosus, not intractable Take 1 tablet (50 mg total) by mouth 2 (two) times daily as needed for Migraine. Max of 4 tablets (200 mg) in 24 hours. 16 tablet 3 05/04/20 Active Additional Information Patient not taking.Reported on 07/16/2023 lisdexamfetamine (VYVANSE) 40 MG capsuleIndications :Attention deficit hyperactivity disorder (ADHD), combined type Take 1 capsule (40 mg total) by mouth every morning. 30 capsule 05/07/20 Active Additional Information Patient not taking.Reported on 07/16/2023 Docusate Sodium (DSS) 100 MG Cap Take 100 mg by mouth 2 (two) times daily. 07/15/19 Active gabapentin (NEURONTIN) 300 MG capsule Take 1 capsule (300 mg total) by mouth every 8 (eight) hours as needed. 07/15/19 24 Active cabergoline (DOSTINEX) 0.5 MG tablet 07/12/19 24 Active Active Problems Problem Noted Date Diagnosed Date Attention deficit hyperactiv ity disorder (ADHD), combined type 09/21/2022 Bipolar disorder, in partial remission, most recent episode depressed ([facility]) 09/30/2020 Generalized anxiety disorder 02/25/2019 GERD (gastroesophageal reflux disease) 8 Allergic rhinitis 11/11/2015 Resolved Problems Problem Noted Date Diagnosed Date Resolved Date Status post laparoscopic cholecystectomy 07/10/2018 09/13/2021 Biliary colic 05/29/2018 06/12/2018 Current moderate episode of major depressive disorder without prior episode 04/02/2018 2 Retained portions of placenta ([facility]) 07/19/2017 04/29/2018 delivery ([facility]) 06/22/2017 1 06/30/2017 contractions ([facility]) 06/14/2017 06/22/2017 Decreased movement ([facility]) 05/18/2017 06/22/2017 Vaginal bleeding in pregnanc y, third trimester ([facility]) 05/17/2017 05/17/2017 Threatened labor, th ird trimester ([facility]) 05/17/2017 06/22/2017 Overview (05/17/2017): Celestone 12mg IM given on 05/17/17. Pt to return on 05/18/17 for 2nd dose. Immunizations Immunization Administration Dates Next Due Adenovirus Vaccine 04/07/2016 Dtap (Acel-Immune) 01/18/1999, 8,1997,06/03 Fluzone 6 Months+ Quad (0.5 mL Prefilled Syringe) 04/29/2018 HPV GARDASIL 9-VALENT 09/21/2022 Hepatitis A (Havrix [address]) 05/03/2007 Hepatitis B Pediatric 06/23/2016,1997 Hib (Generic) 01/18/1999,1997 Hib-Hepatitis B (Comvax) 1997,1997 Influenza Adult (Generic) 02/24/2021,,04/20/2017,07/13 MMR (MMRII) 06/23/2016,02/17/1998 Meningococcal (Menactra) 04/07/2016 Opv 1997,1997,1997 PFIZER COVID-19 (GREEN CAP), MRNA, LNP-S, PF, 30 MCG/0.3 ML ROSALBA-SUCROSE, IM 10/30/2021 PFIZER COVID-19 (ORIGINAL FO RMULATION, PURPLE CAP) mRNA, LNP-S, PF, 30 MCG/0.3 ML DOSE 09/30/2020,05/19/2020 Polio IPV (Ipol) 04/07/2016 Polio Opv (Generic) 1997,1997,1997 Tdap (Boostrix) 06/24/2017 Tdap (Generic) 04/07/2016,07/29/2014 Varicella Vaccine 05/03/2007 Varicella/MMR (Proquad) 02/17/1998 Family History Medical History Relation Comments Hypertension Father Cancer Maternal Grandmother breast Coronary artery disease Mother Diabetes Mother Diabetes Paternal Grandfather Hypertension Paternal Grandfather Relation Status Comments Brother 1 Alive Brother 2 Alive Daughter 1 Alive Daughter 2 Alive Father Alive Maternal Grandfather Alive Maternal Grandmother Alive Mother Alive Paternal Grandfather Alive on hospice Paternal Grandmother Alive Sister 1 Alive Sister 2 Alive Sister 3 Alive Social History Tobacco Use Types Packs/Day Years Used Date Smoking Tobacco: Former Electronic Cigarettes Quit: 05/25/2023 Passive Smoke Exposure: Past Smokeless Tobacco: Never Tobacco Cessation:Counseling Given: Not [...] Orientation Straight 08/22/2021 6: 22 AM CDT Last Filed Vital Signs Vital Sign Reading Time Taken Comments Blood Pressure 101/72 07/24/2023 11:00 AM CORPORATE SERVICES MANAGER Pulse 84 07/24/2023 11:00 AM CORPORATE SERVICES MANAGER Temperature 37 C (98.6 F) 07/24/2023 7:14 AM CORPORATE SERVICES MANAGER Respiratory Rate 18 07/24/2023 11:00 AM CORPORATE SERVICES MANAGER Oxygen Saturation 99% 07/24/2023 11:00 AM CORPORATE SERVICES MANAGER Inhaled Oxygen Concentration - - Weight 66.2 kg (146 lb) 07/24/2023 7:14 AM CORPORATE SERVICES MANAGER Height 160 cm (5' 3) 07/24/2023 7:14 AM CORPORATE SERVICES MANAGER Body Mass Index 25.86 07/24/2023 7:14 AM CORPORATE SERVICES MANAGER Plan of Treatment Health Maintenance Due Date Last Done Comments HPV Vaccines (2 - 3-dose series) 10/19/2022 09/21/2022 Annual Physical 09/22/2023 09/21/2022, 09/13/2021 COVID-19 Vaccine ( season) 2024 10/30/2021, 09/30/2020, 05/19/2020 PHQ-2 (Physician [place]) 05/21/2024 12/27/2022 Cervical Cancer Screening Pap Smear (Age 21 to 29) Every 3 Years 06/01/2024 06/01/2021, 06/01/2021 Cervical Cancer Screening 06/01/2024 DTaP, Tdap and Td Vaccines (8 - Td or Tdap) 06/24/2027 06/24/2017, 04/07/2016, 07/29/2014, Additional history exists Meningococcal Vaccine Aged Out 04/07/2016 No kai lainey eligible based on patient's age to complete this topic Hepatitis B Vaccines Completed 06/23/2016, 1997, 1997, Additional history exists Hepatitis C Completed 07/24/2023, 07/15/2023 Meningococcal B Vaccine Aged Out No l onger eligible based on patient's age to complete this topic Pneumococcal Vaccine: Pediatrics (0 to 5 Years) and At-Risk Patients (6 to 49 Years) Aged Out No longer eligible based on patient's age to complete this topic RSV Immunizations Under 20 Months Aged Out No longer eligible based on patient's age to complete this topic Procedures Procedure Name Priority Date/Time Associated Diagnosis Comments HEPATITIS PANEL,ACUTE STAT 07/24/2023 7:51 AM CORPORATE SERVICES MANAGER OUTSIDE CYTOPATH CERV/VAG INTERPRET (PAP) 06/01/2021 from Last 3 Months or Most Recently Relevant to Health Maintenance Results * HEPATITIS PANEL,ACUTE (07/24/2023 7:51 AM CORPORATE SERVICES MANAGER) HEPATITIS B SURFACE AG NON-REACTI VE NON-REACTI VE 07/24/2023 11:[address] [facility] HEP B CORE IGM NON-REACTI VE NON-REACTI VE 07/24/2023 11:40 AM CORPORATE SERVICES MANAGER [facility] HAV IGM NON-REACTI VE NON-REACTI VE 07/24/2023 11:40 AM CORPORATE SERVICES MANAGER [facility] HEPATITIS C AB NON-REACTI VE NON-REACTI VE 07/24/2023 11:40 [address] CORPORATE SERVICES MANAGER [facility] 07/24/2023 7:51 AM CORPORATE SERVICES MANAGER Darian Forde MD LABORATORY Final Re sult [facility] [address] [place] [address], * PAP SMEAR WITH HPV (06/01/2021) 06/01/2021 Narrative 06/01/2021 Ordered by an unspecified provider. Documents Scanned SCANNING Final Result from Last 3 Months or Most Recently Relevant to Health Maintenance Insurance [place] [place] [address] Member Subscriber Plan / Payer (Ef fective 2022-Present) Name:Suly Anaya Relation to Subscriber:Spouse Name:Donnell Anaya Date of :1993 (Home) (Work) Address: [address] [place] [address] Payer ID:[id number] Type:Not on file Address: [address] [id number] Advance Directives * Full Code (Latest Code Status on File) Date Activated Date Inactivated Comments 07/19/2017 10:51 AM 07/19/2017 8:18 PM * Full Code Date Activated Date Inactivated Comments 06/20/2017 7:47 PM 06/24/2017 2:45 PM * Full Code Date Activated Date Inactivated Comments 06/14/2017 4:34 PM 06/14/2017 11:10 PM Care Teams Lead Software Development Engineer Relationship Specialty Start Date End Date Maryuri Roblero NP [address] [place] [address] PCP - General Nurse Practitioner Family 08/23/21
--- OUTSIDE RECORDS SUMMARY | 2025-01-14 13:33 | XMS_ITS | Encounter Summary ---
Author Organization [facility] Address [address] [place] [address] Care Team Providers Care Sourcing Coordinator Name Role Phone Maryuri Roblero CLERICAL AND ADMINISTRATIVE WORKERS Primary Care Provider [phone] Encounter Details Date Type Department Care Team (Late st Contact Info) Description 12/15/2022 Herzio Message Enc [facility] Medical Group Family and Sports Medicine - [place] [address] [place] [address] Brandee, [facility] Provider Migraine Medication Social History Tobacco Use Types Packs/Day Years [...] documented as of this encounter Care Teams Sourcing Coordinator Relationship Specialty Start Date End Date Maryuri Roblero, CLERICAL AND ADMINISTRATIVE WORKERS [address] [place] [address] PCP - General Nurse Practitioner Family 08/23/21 documented as of this encounter
--- OUTSIDE RECORDS SUMMARY | 2025-01-14 13:33 | XMS_ITS | Encounter Summary ---
Author Organization [facility] Address [address] [place] [address] Care Team Providers Care Electric Motor Repairer Name Role Phone Maryuri Roblero POT PUSHER Primary Care Provider [phone] Encounter Details Date Type Department Care Team (Late st Contact Info) Description 07/24/2023 Palkiont Message Enc [facility] Medical [facility] Family and Sports Medicine - [place] [address] [place] [address] Maryuri Roblero, POT PUSHER [address] [place] [address] Labs Social History Tobacco Use Types Packs/Day [...] of Assessment Author Status No Risk Indicated 07/24/2023 7:17 AM Sergio Salguero RN Active * [place] Suicide Severity Rating Scale (Screener/Recent Self-Report) Question Answer Date of Assessment Author Status 1. Wish to be (Past 1 Month) No 07/24/2023 7:17 AM Louisa Salguero RN Active 2. Non-Specific Active Suicidal Thoughts (Past 1 Month) No 07/24/2023 7:17 AM Louisa Salguero RN Active 6. Suicidal Behavior (Lifetime) No 07/24/2023 7:17 AM Louisa Salguero RN Active documented as of this encounter Plan of Treatment Not on file documented as of this encounter Visit Diagnoses Not on filedocumented in this encounter Additional Health Concerns Assessment Noted Time PHQ-9 Depression Total Score: 13 023 2:12 PM CDT documented as of this encounter Care Teams Electric Motor Repairer Relationship Specialty Start Date End Date Maryuri Roblero NP [address] [place] [address] PCP - General Nurse Practitioner Family 08/23/21 documented as of this encounter
--- OUTSIDE RECORDS SUMMARY | 2025-01-14 13:33 | XMS_ITS | Encounter Summary ---
Author Organization [facility] Address [address] [place] [address] Care Team Providers Care Assistant Passenger Locomotive Engineer Name Role Phone Maryuri Roblero DUMP GRADER Primary Care Provider [phone] Encounter Details Date Type Department Care Team ([facility] st Contact Info) Description 08/23/2021 MyChart Message Enc [facility] Medical Group Family and Sports Medicine - [place] [address] [place] [address] Maryuri Roblero, DUMP GRADER [address] [place] [address] Medication Problems Social History Tobacco Use Types Packs/Day Years Used Date Smoking Tobacco: Every Day Electronic Cigarettes Smokeless Tobacco: Never Alcohol Use Standard Drinks/Week Comments Yes 0 (1 standard drink = 0.6 oz pur e alcohol) ocassionally PHQ-2 Answer Date Recorded PHQ-2 Score - If the patient scores above 3, please move on to questions 3-9 2 08/23/2021 Comments No Sex and Gender Information Value [...] suspected to have Coronavirus/COVID-19? No / Unsure 08/23/2021 12:27 PM CDT documented as of this encounter Functional Status * Calculated C-SSRS Risk Score (Lifetime/Recent) Answer Date of Assessment Author Status No Risk Indicated 08/23/2021 3:56 PM CDT Te Oh MA Active * [place] Suicide Severity Rating Scale (Screener/Recent Self-Report) Question Answer Date of Assessment Author Status 1. Wish to be (Past 1 Month) No 08/23/2021 3:56 PM CDT Janett Oh MA Act sukumar 2. Non-Specific Active Suicidal Thoughts (Past 1 Month) No 08/23/2021 3:56 PM CDT Janett Oh MA Act sukumar 6. Suicidal Behavior (Lifetime) No 08/23/2021 3:56 PM CDT Janett Oh MA Act sukumar documented as of this encounter Plan of Treatment Not on file documented as of this encounter Visit Diagnoses Not on filedocumented in this encounter Additional Health Concerns Assessment Noted Time PHQ-9 Depression Total Score: 14 022 3:56 PM CDT documented as of this encounter Care Teams Assistant Passenger Locomotive Engineer Relationship Specialty Start Date End Date Maryuri Roblero NP [address] [place] [address] PCP - General Nurse Practitioner Family 08/23/21 documented as of this encounter
--- OUTSIDE RECORDS SUMMARY | 2025-01-14 13:33 | XMS_ITS | Encounter Summary ---
Author Organization [facility] Address [address] [place] [address] Care Team Providers Care Fire Apparatus Sprinkler Inspector Name Role Phone Maryuri Roblero COOLING MACHINE OPERATOR Primary Care Provider [phone] Encounter Details Date Type Department Care Team (Late st Contact Info) Description 10/25/2021 MyChart Message Enc [facility] Medical Group Family and Sports Medicine - [place] [address] [place] [address] Maryuri Roblero, COOLING MACHINE OPERATOR [address] [place] [address] Do not release my records to anyone Social History Tobacco Use Types Packs/Day Years [...] suspected to have Coronavirus/COVID-19? No / Unsure 10/25/2021 12:33 AM CDT documented as of this encounter Functional Status * Calculated C-SSRS Risk Score (Lifetime/Recent) Answer Date of Assessment Author Status No Risk Indicated 10/25/2021 12:46 AM R[place] Sa shi Cadet RN Active * [place] Suicide Severity Rating Scale (Screener/Recent Self-Report) Question Answer Date of Assessment Author Status 1. Wish to be (Past 1 Month) No 10/25/2021 12:46 AM Benita Agosto RN Active 2. Non-Specific Active Suicidal Thoughts (Past 1 Month) No 10/25/2021 12:46 AM Benita Agosto RN Active 6. Suicidal Behavior (Lifetime) No 10/25/2021 12:46 AM Benita Agosto RN Active documented as of this encounter Plan of Treatment Not on file documented as of this encounter Visit Diagnoses Not on filedocumented in this encounter Additional Health Concerns Assessment Noted Time PHQ-9 Depression Total Score: 14 022 3:56 PM CDT documented as of this encounter Care Teams Fire Apparatus Sprinkler Inspector Relationship Specialty Start Date End Date Maryuri Roblero NP [address] [place] [address] PCP - General Nurse Practitioner Family 08/23/21 documented as of this encounter
--- OUTSIDE RECORDS SUMMARY | 2025-01-14 13:33 | XMS_ITS | Encounter Summary ---
Author Organization [facility] Address [address] [place] [address] Care Team Providers Care Layer Out Plate Glass Name Role Phone Osbaldo Maryuri Gutiérrez HEALTH PROMOTION OFFICER Primary Care Provider [phone] Encounter Details Date Type Department Care Team (Late st Contact Info) Description 12/27/2022 Masterseek Message [facility] [address] [place] [address] Brandee, [facility] Provider Proof of Name Change Social History Tobacco Use Types Packs/Day Years [...] as of this encounter Functional Status * Over the past 2 weeks, how often have you been bothered by any of the following problems? Question Answer Date of Assessment Author Status Little interest or pleasure in doing things Not at all 12/27/2022 1:48 PM CDT Nguyen Landrum RN Active Feeling down, depressed, or hopeless Not at all 12/27/2022 1:48 PM CDT Nguyen Landrum RN Activ e Patient Health Questionnaire-2 Score 0 12/27/2022 1:48 PM CDT Nguyen Landrum RN Active documented as of this encounter Plan of Treatment Not on file documented as of this encounter Visit Diagnoses Not on filedocumented in this encounter Additional Health Concerns Assessment Noted Time PHQ-9 Depression Total Score: 13 023 2:12 PM CDT documented as of this encounter Care Teams Layer Out Plate Glass Relationship Specialty Start Date End Date Maryuri Roblero NP [address] [place] [address] PCP - General Nurse Practitioner Family 08/23/21 documented as of this encounter
--- OUTSIDE RECORDS SUMMARY | 2025-01-14 13:33 | XMS_ITS | Encounter Summary ---
Author Organization [facility] Address [address] [place] [address] Care Team Providers Care Woodworking Machine Offbearer Name Role Phone Maryuri Roblero HEAD SETTER Primary Care Provider + Encounter Details Date Type Department Care Team (Late st Contact Info) Description 08/07/2022 [email or web address] Message [facility] Medical Group Family and Sports Medicine - [place] [address] [place] [address] [facility] Provider Appointment Social History Tobacco Use Types Packs/Day Years [...] documented as of this encounter Care Teams Woodworking Machine Offbearer Relationship Specialty Start Date End Date Maryuri Roblero, HEAD SETTER [address] [place] [address] PCP - General Nurse Practitioner Family 08/23/21 documented as of this encounter
--- NOTE | 2025-01-14 13:36 | ED_ITS ---
HPI - URI/Sore Throat General Chief Complaint: Upper Respiratory Infection Stated Complaint: throat/fever Time Seen by Provider: 01/14/25 13:37 Source: patient Mode of arrival: ambulatory Limitations: no limitations History of Present Illness HPI Narrative: 29 yo F presents with c/o fatigue, fever, sore throat, headache for 1 day. +nausea. No vomiting or diarrhea. MIld nasal congestion. Requesting strep test. all systems reviewed and negative except as noted above. Related Data Home Medications ?Medication ?Instructions ?Recorded ?Confirmed ?Last Taken ?Type lamotrigine 100 mg tablet mg 01/25/24 Unknown History lisdexamfetamine 30 mg capsule mg 01/25/24 Unknown Hi story sumatriptan succinate 25 mg tablet mg PO 01/25/24 Unk nown History Allergies Allergy/AdvReac Type Severity Reaction Status Date / Time vancomycin Allergy Rash Verified 01/14/25 13:25 [facility] Comments At time of signature, agree with nursing past medical, surgical, social and family history. There is no relevant family history pertinent to the presenting complaint. Exam Narrative: GENERAL: This is a well-nourished, well-developed patient, Ill-appearing but in no acute distress HEAD: normocephalic, atraumatic. EYES: PERRL. Sclera clear/white. Vision is grossly intact. EARS: External ears normal, auditory canals clear and without drainage, TMs normal without perforation. Hearing grossly intact. NOSE: External nose normal with no obvious nasal discharge, nares without redness, no rhinorrhea. THROAT: Mucous membranes moist, mild erythema without swelling or exudates NECK: Neck supple, non-tender without lymphadenopathy, masses or thyromegaly. CARDIOVASCULAR: Regular rate and rhythm without murmurs, gallops, or rubs. RESPIRATORY: Clear to auscultation. Breath sounds equal bilaterally. No wheezes, rales, or rhonchi. SKIN: warm, Dry, intact with no suspicious lesions or rash, good texture and turgor. NEURO: awake, alert, and oriented to person, place and time. There were no obvious focal neurologic abnormalities. EXTREMITIES: No joint tenderness, effusion, or edema noted. Course Course Level of Care: Express Care Visit Vital Signs Vital signs: Vital Signs Temperature 37.3 C 01/14/25 13:41 Pulse Rate 82 01/14/25 13:41 Respiratory Rate 18 01/14/25 13:41 Blood Pressure 126/76 01/14/25 13:41 Pulse Oximetry 98 01/14/25 13:41 Oxygen Delivery Room Air 01/14/25 13:41 Temperature 37.3 C 01/14/25 13:41 Pulse Rate 82 01/14/25 13:41 Respiratory Rate 18 01/14/25 13:41 Blood Pressure 126/76 01/14/25 13:41 Pulse Oximetry 98 01/14/25 13:41 Oxygen Delivery Room Air 01/14/25 13:41 reviewed MDM - URI/Sore Throat MDM Narrative Medical decision making narrative: negative COVID, influenza and strep test. Strep culture ordered. Will wait for culture results prior to treating with antibiotics. Patient agrees with plan of care. Patient is alert, nontoxic. Differential Diagnosis Differential diagnosis: Likely upper respiratory infection, sinusitis, viral infection, influenza and pharyngitis Lab Data Labs: Lab Results 01/14/25 01/14/25 Range/Units 13:48 14:07 POC Influenza A Ag Negative (Negative) POC Influenza B Ag Negative (Negative) POC SARS CoV-2 Ag Negative (Negative) POC Grp A Strep Screen Negative (Negative) Discharge Plan Discharge Clinical Impression: Acute viral pharyngitis Patient Disposition: Home Condition: Stable Instructions: Antibiotic Form, Pharyngitis (ED) Additional Instructions: your COVID, influenza and strep test were negative today. A strep culture was ordered and was told will take 48-72 hours. If your strep culture is positive we will call you at that time and prescribed an antibiotic. Take ibuprofen or Tylenol every 6-8 hours as needed for pain. Drink plenty of water and rest. See your doctor if symptoms are not improving. Patient Language: Macedonian Prescriptions: No Action sumatriptan succinate 25 mg tablet PO lamotrigine 100 mg tablet lisdexamfetamine 30 mg capsule Follow-up/Referrals: PHYSICIAN NOT ON STAFF,NONSTAFF [Primary Care Provider] Stand Alone Forms: Work/School Release IP Time of Disposition: 14:07
[2025-01-14 13:41] VITALS: BP 126/76; PULSE 82; RESP 18; TEMP 37.3; O2SAT 98
[2025-01-14 13:54] LABS: EDSTREPNEGPOS1 Negative (Negative)
[2025-01-14 14:09] LABS: EDCOVIDSCREEN Negative (Negative); EDINFLUASCREEN Negative (Negative); EDINFLUBSCREEN Negative (Negative)
== END 2025-01-14 14:13 | disposition home or self-care (01) ==
PROVIDERS: Emergency Provider Nurse Practitioner Family
DX: J02.8 Acute pharyngitis due to other specified organisms (principal); B97.89 Other viral agents as the cause of diseases classified elsewhere; Z20.822 Contact with and (suspected) exposure to COVID-19
CPT/HCPCS: 87081; 87426; 87804; 87880; 99213; G0463

== ENCOUNTER 2025-01-23 13:41 | Emergency (ER) | payer OTHER, BC, SELFPAY ==
[2025-01-23 13:47] VITALS: BP 140/86; PULSE 89; RESP 16; TEMP 37.3; O2SAT 100
--- OUTSIDE RECORDS SUMMARY | 2025-01-23 14:07 | XMS_ITS | Encounter Summary ---
Author Organization [facility] Address [address] [place] [address] Phone Care Team Providers Care Business Strategy Manager Name Role Phone Bessie Patel MD Primary Care Provider [phone] Ilsa Lara MD, Bhavesh Gutiérrez Unavailable [phone] Maryuri Roblero NP Primary Care Provider [phone] Encounter Details Date Type Department Care Team (Latest Contact Info) Description 03/15/2017 Orders Only [facility] CONVERSION Scanning, Provider Social History Tobacco Use Types Packs/Day Years Used Date Smoking Tobacco: Never Comments Unknown Sex and Gender Information Value Date Recorded Sex Assigned at Not on file Legal Sex Female 10:10 PM OBSTETRICIAN/GYNECOLOGIST Gender Identity Not on file Sexual Orientation [...] COVID: Suspected 06/02/2020 06/02/2020 06/02/2020 11:41 PM OBSTETRICIAN/GYNECOLOGIST COVID19 06/02/2020 06/02/2020 06/16/2020 3:07 AM OBSTETRICIAN/GYNECOLOGIST COVID: Recovered Comment:Added based on recent COVID infection. 06/16/2020 06/22/2020 10/14/2020 3:05 AM C DT documented as of this encounter Care Teams Business Strategy Manager Relationship Specialty Start Date End Date Bessie Patel MD [address] [facility] [address] [place] [address] PCP - General 07/10/16 06/01/20 Maryuri Roblero NP [address] [place] [address] PCP - General 06/02/20 [place] [address] [address] [facility] [address] [facility] [address] [place] [address] Surgeon Plastic Surgery 12/25/19 documented as of this encounter
--- OUTSIDE RECORDS SUMMARY | 2025-01-23 14:07 | XMS_ITS | Clinical Summary ---
Author Organization [facility] Address [address] [place] [address] Care Team Providers Care Computing Consultant Name Role Phone Ilsa Lara MD, Bhavesh Marla Unavailable [phone] Maryuri Roblero NP Primary Care Provider [phone] Allergies No known active allergies Medications hydrOXYzine [...] 09/27/2017 Surgical History Surgery Date Site/Laterality Comments DC CORRJ HLX VLGS BNCTY SESMDC W/DOUBLE OSTEOTOMY 05/21/2016 - 05/20/2017 Left Hallux Valgus (Bunion) Correction - (Added by Virax Conv) CHOLECYSTECTOMY 05/21/2017 - 05/20/2018 DILATION AND [...] Family history of hypertension - (Added by IMayGou) Mental illness Father Breast cancer Maternal Grandmother Diabetes Mother Family history of diabetes mellitus - (Added by IMayGou) Mental illness Mother Stroke Mother Family history of cerebrovascular accident (CVA) - (Added by IMayGou) Breast cancer Other Heart disease Other Family history of cardiac disorder - Relation: Grandmother (Added by IMayGou) Mental illness Sister Relation Name Status Comments [...] on file Legal Sex Female 10:10 PM ROD FINISHER Gender Identity Not on file Sexual Orientation [...] DARBY Johns tracy Perales nski CNM Delivery Location:[facility] Last Filed Vital Signs Vital Sign Reading Time Taken Comments Blood Pressure 115/76 07/17/2023 7:05 PM ROD FINISHER Pulse 79 07/17/2023 7:05 PM ROD FINISHER Temperature 37.1 C (98.8 F) 07/17/2023 7:05 PM ROD FINISHER Respiratory Rate 18 07/17/2023 7:05 PM ROD FINISHER Oxygen Saturation 99% 07/17/2023 7:05 PM ROD FINISHER Inhaled Oxygen Concentration - - Weight 64.8 kg (142 lb 13.7 oz) 07/17/2023 7:05 PM ROD FINISHER Height 160 cm (5' 2.99) 09/05/2022 3:19 PM CDT Body Mass Index 25.31 09/05/2022 3:19 PM CDT Plan of Treatment Health Maintenance Due Date Last Done Comments Depression Screening 1995 Pneumococcal vaccine <65 (1 of 2 - PCV) 01/25/2016 Cervical Cancer Screening 06/01/2022 06/01/2021 Regular Well Visit/Exam 18-64 09/06/2023 09/05/2022, 06/01/2021 HPV Vaccines (1 - 3-dose SCD M series) 01/25/2024 Covid-19 Vaccine (3 - 2024-2 6 season) 2025 09/30/2020, 05/19/2020 Influenza Vaccine (#1) 2025 , 04/19/2020, 04/09/2019, Additional history exists DTaP/Tdap/Td Vaccine (8 - Td or Tdap) 06/24/2027 06/24/2017, 04/07/2016, 07/29/2014, Additional history exists Varicella Vaccines Completed 05/03/2007, 02/17/1998 Hepatitis B Screening Completed 06/23/2016 , 1995, 1995, Additional history exists Hepatitis C Screening Completed 09/06/2022 Medical Devices Implanted Type Area Utilities Operator Device Identifier Shelf Expiration Date Model / Serial / Lot [employer] Ssf-450 Natrelle Inspira Smooth Shell Surface Full Profile Implant 450cc Latex Free - [id number] - [id number] Implanted:Qty : 1 on 12/25/2019 by Bhavesh Rosenbaum Jr., MD at [facility] Right: Breast [employer] [id number] 08/31/2024 SSF-450 / [id number] / [id number] Description:*NO CHARGE IMPLA NT PROVIDED BY THE SURGEON KV* [employer] Ssf-485 Natrelle Inspira Smooth Shell Surface Soft Touch Implant 485cc Latex Free - [id number] - [id number] Implanted:Qty : 1 on 12/25/2019 by Bhavesh Rosenbaum Jr., MD at [facility] Left: Breast [employer] [id number] 06/25/2024 SSF-485 / [id number] / [id number] Description:*NO CHARGE IMPLA NT PROVIDED BY THE SURGEON KV* Procedures Procedure Name Priority Date/Time Associated Diagnosis Comments HEPATITIS PANEL, ACUTE Routine 09/06/2022 2:37 PM CDT Routine screening for STI (sexually transmitted infection) PAP WITH REFLEX TO HIGH RISK HPV Routine 06/01/2021 1:34 PM ROD FINISHER Well woman exam Screening for STD (sexually [...] on 19. Hep C Ab Nonreactive Nonreactive [facility] Comment: Interpretive Data Nonreactive: Antibodies to [...] last revised on 2019. HepBsAg Nonreactive Nonreactive [facility] Blood 09/06/2022 2:37 PM CDT 09/06/2022 5:27 PM CDT us Tracey Jenkins NP LAB MICROBIOLOGY - GENERAL ORDER OFELIA Final Result [facility] [address] [facility] [place] [address] * (ABNORMAL) Pap with reflex to High Risk HPV (06/01/2021 1:34 PM ROD FINISHER) Swab (Pap test) 06/01/2021 1 :34 PM ROD FINISHER 06/03/2021 1:34 PM ROD FINISHER Narrative PATHOLOGY [facility] - 06/10/2021 9:07 AM ROD FINISHER [facility] Department of Pathology [address] [place], [place] [id number] Final Report Note to Patients: This report [...] the details. Patient Name: CALE SLOAN Address: [address] [place] [address] Gender: F : 1995 (Age: 26) Service: Laboratory Location: [facility] #: [id number] Patient Type: [facility] SPECIMEN Taken: 06/01/2021 Received: 06/03/2021 Accessioned:: 06/06/2021 Reported: 06/10/2021 Physician(s): Sarah Ruth M.D. 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 Report Electronically Reviewed and Signed Out By Joe Trammell M.D. 06/10/2021 09:07:18 Specimen(s) Received: A: Imaged Thinprep Pap Test w/ Reflex HPV - Elder Assistant Cytologic Material Clinical History: Contraceptive History: IUD [...] determined by the Surgical Pathology Department at [facility] as part of an ongoing quality assurance monitor program and in compliance with federally mandated [...] characteristics determined by the Surgical Pathology Department [facility]. It has not been cleared or approved by the U. S. Food and Drug Administration. Sarah Ruth MD LAB CYTOLOGY ORDERABLES Final Re sult [facility] Organization Address City/State/ZIP Co de Phone Number [facility] from Last 3 Months or Most Recently Relevant to Health Maintenance Insurance [facility] ACCESS IDPA [facility] CORE IDPA [place] [id number] [facility] CORE [place] ACCESS IDPA Care Teams Computing Consultant Relationship Specialty Start Date End Date Maryuri Roblero NP [address] [place] [address] PCP - General 06/02/20 [place] [address] [address] [facility] [address] [facility] [address] [place] [address] Surgeon Plastic Surgery 12/25/19
--- OUTSIDE RECORDS SUMMARY | 2025-01-23 14:07 | XMS_ITS | Clinical Summary ---
Author Organization [facility] Address [address] [facility] [address] [place] [address] Phone Care Team Providers Care Die Tripper Name Role Phone Maryuri Roblero APN Primary Care Provider [phone] Gemma Dc MD Unavailable Social History Tobacco Use Types Packs/Day Years Used Date Smoking Tobacco: Never Assessed Comments Unknown Sex and Gender Information Value Date Recorded Sex Assigned at Not on file Legal Sex Female 9:29 AM PSYCHOPAEDIC NURSE Gender Identity Not on file Sexual Orientation [...] patient's age to complete this topic Insurance [facility] MEDICAID [place] Care Teams Die Tripper Relationship Specialty Start Date End Date Maryuri Roblero APN [address] [place] [address] PCP - General Advanced Practice Nurse 08/06/23 Gemma Dc MD [address] [place] [id number] Consulting Physician Oncology 08/06/23
--- OUTSIDE RECORDS SUMMARY | 2025-01-23 14:08 | XMS_ITS | Clinical Summary ---
Author Organization [facility] Address [address] [place] [address] Care Team Providers Care Aml Analyst Name Role Phone Adam Monroy DO Primary Care Provider [phone] Allergies Active Allergy Reactions Criticality Noted Date [...] for hemoperitoneum and ovarian hyerstem Following with BLOOD TYPER Bipolar disorder, in partial remission, most recent [...] Type Department Care Team Description 01/12/2025 Telephone [facility] BLOOD TYPER - [facility] [address] [place] [address] Juanis Parada NP Labs Only (/) 01/08/2025 8:00 AM CDT Office Visit [facility] Neurology [address] [place] [address] [address] [place] [phone] Krystal Martino MD Chronic migraine without aura without status migrainosus, not intractable 01/07/2025 Telephone [facility] Gastroenterology [facility] [address] [facility] [address] [place] [phone] Clarita Vaughan PA Care Plan 01/05/2025 1:00 PM CDT Office Visit [facility] [address] [facility] [address] [place] [address] Clarita Vaughan PA Irritable bowel syndrome with constipation (Primary Dx); Esophageal dysphagia 12/27/2024 Refill [facility] [address] [phone] Adam Monroy DO Attention deficit hyperactivity disorder (ADHD), combined type 12/24/2024 External Device Data STL ABSTRACTION Provider, Abstract 12/10/2024 8:15 AM CDT Telephone Check Up [facility] [address] [place] [address] Juanis Parada NP Encounter for initial prescription of transdermal patch hormonal contraceptive device (Primary Dx) 12/05/2024 Orders Only [facility] BLOOD TYPER - [facility] [address] [facility] [address] [place] [phone] Provider, Abstract 11/28/[address] [phone] Lena Hernandez NP Bipolar disorder, in partial remission, most recent episode depressed ([facility]/HCC) 11/25/[address] [phone] Adam Monroy DO Intractable chronic migraine with aura with status migrainosus 11/25/[address] [phone] Lena Hernandez NP Bipolar disorder, in partial remission, most recent episode depressed ([facility]/HCC) 11/25/[address] [phone] Wu Aguilera MD Attention deficit hyperactivity disorder (ADHD), combined type 11/18/2024 External Device Data STL ABSTRACTION Provider, Abstract 11/04/2024 Results Follow-Up [facility] BLOOD TYPER - [facility] [address] [facility] [address] [place] [phone] Mary Wilson MD CERV/VAG CYTO AGE BASED SCREEN PAP W CT/NG, TRICH 11/04/2024 Results Follow-Up [address] [phone] Lena Hernandez NP CBC WITH DIFFERENTIAL, COMPREHENSIVE METABOLIC PANEL, TSH REFLEXIVE, Additional followed-up results: 2 10/31/2024 3:00 PM CDT Office Visit [address] [phone] Lena Hernandez NP Encounter for [...] mellitus 10/30/2024 12:30 PM CDT Office Visit [facility] BLOOD TYPER - [facility] [address] [place] [phone] Mary Wilson MD Well woman exam with routine gynecological exam (Primary Dx); Screening for cervical cancer; Screening for HPV (human papillomavirus); Routine screening for STI (sexually transmitted infection) 10/24/2024 Refill [facility] [address] [facility] [address] [place] [phone] Pari Humphrey DO Gastroesophageal reflux disease, unspecified whether esophagitis present; Nausea; Bloating; Irritable bowel syndrome with constipation 10/24/2024 Refill [facility] [address] [place] [phone] Adam Monroy DO Bipolar disorder, in [...] COVID-19 VACCINE - EMERGENCY USE AUTHORIZATION, MRNA, [id number](PF) 30 MCG/0.3 ML IM SUSP 05/19/2020 (PROQUAD)(12 [...] CDT Respiratory Rate 18 05/02/2024 9:00 AM NUTRITIONAL CHEMIST Oxygen Saturation 99% 01/08/2025 8:05 AM CDT Inhaled Oxygen Concentration - - Weight 67.6 kg (149 lb) 01/12/2025 3:41 PM CDT Height 160 cm (5' 3) 01/12/2025 3:41 PM CDT Body Mass Index 26.39 01/12/2025 3:41 PM CDT Plan of Treatment Upcoming Encounters Date Type Department Care Team (Latest Contact Info) Description 8:00 AM CDT Hospital Encounter [facility] [address] [place] [phone] Pari Humphrey, DO [address] [facility] [address] [place] [phone] Esophageal dysphagia 5 8:00 AM CDT - 5 8:30 AM CDT Surgery [facility] [address] [place] [phone] Pari Humphrey, DO [address] [facility] [address] [place] [address] ESOPHAGOGASTRODUODENOSCOPY 5 10:15 AM NUTRITIONAL CHEMIST Procedure visit [facility] BLOOD TYPER - [address] [facility] [address] [place] [phone] Juanis Parada, STOCK BLENDER [address] [facility] [address] [place] [phone] 5 8:40 AM NUTRITIONAL CHEMIST Office Visit [facility] [address] [facility] 1200 [place] [phone] Pari Humphrey, DO [address] [facility] [address] [place] [address] 5 9:45 AM NUTRITIONAL CHEMIST Office Visit [facility] Neurology [address] [place] [id number] [place] [phone] [place] [address] [address] Scheduled Procedures Name Priority Associated Diagnoses Date/Ti me ESOPHAGOGASTRODUODENOSCOPY Esophageal dysphagia 02/03/2025 8:00 AM CDT Health Maintenance Due Date Last Done Comments HPV/Cotest (21-29) 2018 HPV VACCINES (2 - 3-dose series) 10/19/2022 09/22/19 INFLUENZA VACCINE (#1) 2024 , 04/19/2020, 04/29/2018, Additional history exists COVID-19 Vaccine (4 - 2024-2 6 season) 2025 10/30/2021, 09/30/2020, 05/19/2020 DTAP/TDAP/TD VACCINES (8 - T d or [...] Abstract Provider CHEMISTRY ORDERABLES Final Res [facility] B[facility] - [facility] CLIA# [id number] [address] [address] * TSH REFLEXIVE (11/03/2024 8:36 AM CDT) TSH 2.47 mIU/L [facility] Comment: Reference Range > or = 20 Years 0.40-4.50 Ranges First trimester 0.26-2.66 Second trimester 0.55-2.73 Third trimester 0.43-2.91 FASTING:YES FASTING: YES Test Performed at: [facility] [address] [place] [address] Laverne Brandt MD Blood 11/03/2024 8:36 AM CDT 11/03/2024 8:37 AM CDT us Lena Hernandez STOCK BLENDER CHEMISTRY ORDERABLES Final Resul t [facility] [phone] [facility] [address] [place] [phone] * (ABNORMAL) CBC WITH DIFFERENTIAL (11/03/2024 8:36 [...] Comment: FASTING:YES FASTING: YES Test Performed at: [facility] [address] [facility] [place] [address] Laverne Brandt MD Blood 11/03/2024 8:36 AM CDT 11/03/2024 8:37 AM CDT us Lena Hernandez NP HEMATOLOGY ORDERABLES Final Resu lt [facility] [phone] [facility] [address] [address] [place] [address] * HEMOGLOBIN A1C (11/03/2024 8:36 AM CDT) HEMOGLOBIN A1C 5.5 <5.7 % of total Hgb [facility] Comment: For the purpose of screening for the presence of diabetes: <5.7% Consistent with the absence of diabetes 5.7-6.4% Consistent with increased risk for diabetes (prediabetes) > or =6.5% Consistent with diabetes This assay result is consistent with a decreased risk of diabetes. Currently, no consensus exists regarding use of hemoglobin A1c for diagnosis of diabetes in children. According to [place] Diabetes Association (ADA) guidelines, hemoglobin A1c <7.0% represents optimal control in non- diabetic patients. Different metrics may apply to specific patient populations. Standards of Medical Care in Diabetes(ADA). ESTIMATED AVERAGE GLUCOSE (MG/DL) 111 mg/dL [facility] ESTIMATED AVERAGE GLUCOSE (MMOL/L) 6.2 mmol/L [facility] Comment: FASTING:YES FASTING: YES Test Performed at: [facility] [address] [place] [address] RosiNelson Brandt Blood 11/03/2024 8:36 AM CDT 11/03/2024 8:37 AM CDT us Lena Hernandez NP CHEMISTRY ORDERABLES Final Resul t [facility] [phone] [facility] [address] [place] [address] * (ABNORMAL) LIPID PANEL (11/03/2024 8:36 AM CDT) CHOLESTEROL 192 <200 mg/dL [facility] HDL 56 > OR = 50 mg/dL [facility] TRIGLYCERIDE 119 <150 mg/dL [facility] LDL CALCULATED 113(H) mg/dL (calc) [facility] Comment: Reference range: <100 Desirable range <100 mg/dL for primary prevention; <70 mg/dL for patients with CHD or diabetic patients with > or = 2 CHD risk factors. LDL-C is now calculated using the Melanie calculation, which is a validated novel method providing better accuracy than the Friedewald equation in the estimation of LDL-C. Shailesh BRADEN et al. ILEANA. 2013;310(19): 3373-0466 (http://education.Parrable/faq/UDR915) CHOL/HDL RATIO 3.4 <5.0 (calc) OR [facility] NON-HDL CHOLESTEROL 136(H) <130 mg/dL (calc) [facility] Comment: For patients with diabetes plus 1 major ASCVD risk factor, treating to a non-HDL-C goal of <100 mg/dL (LDL-C of <70 mg/dL) is considered a therapeutic option. Test Performed at: [facility] [address] [facility] [place] [address] Laverne Brandt MD Blood 11/03/2024 8:36 AM CDT 11/03/2024 8:37 AM CDT us Lena Hernandez NP CHEMISTRY ORDERABLES Final Resul t [facility] [phone] [facility] [place] [address] * COMPREHENSIVE METABOLIC PANEL (11/03/2024 8:36 AM CDT) GLUCOSE 93 65 - 99 mg/dL [facility] Comment: Fasting reference interval BUN 15 [...] Comment: FASTING:YES FASTING: YES Test Performed at: [facility] [address] [place] [address] Laverne Brandt MD Blood 11/03/2024 8:36 AM CDT 11/03/2024 8:37 AM CDT us Lena Hernandez STOCK BLENDER CHEMISTRY ORDERABLES Final Resul t [facility] [phone] [facility] [address] * CERV/VAG CYTO AGE BASED SCREEN PAP W CT/NG, TRICH (10/30/2024 12:35 PM CDT) COMMENT (PAP): [facility] Comment: This order for age-based cervical cancer and STI screening follows ACOG guidelines(PB 168, 140, CPY485). See individual assays for performing site location. CLINICAL INFORMATION [facility] Comment:None given LAST MENSTRUAL PERIOD [facility] Comment:[id number] PREV PAP: [facility] Comment:NONE GIVEN PREV BX: [facility] Comment:NONE GIVEN SOURCE [facility] Comment:Endocervix ADEQUACY: [facility] Comment: Satisfactory for evaluation. Endocervical/transformation zone component present. PAP INTERP [facility] Comment: Cytology Results: Negative for intraepithelial lesion or malignancy. COMMENT (PAP TEST) Q uest [facility] Comment: This Pap test has been evaluated with computer assisted technology. THERMITE BOMB LOADER: Sandip iqbal [facility] Comment: MEN, CT(ASCP) CT Screening Location: [place] [phone] EXPLANATORY NOTE [facility] Comment: EXPLANATORY NOTE: The Pap is a [...] RNA, TMA, UROGENITAL NOT DETECTED NOT DETECTED [facility] NEISSERIA GONORRHOEAE RNA, TMA, UROGENITAL NOT DETECTED NOT DETECTED [facility] COMMENT INFECTIOUS DISEASE [facility] Comment: The analytical performance characteristics of this assay, when used to test SurePath(TM) specimens have been determined by [facility]. The modifications have not been cleared or approved by the FDA. This assay has been validated pursuant to the CLIA regulations and is used for clinical purposes. For additional information, please refer to https://PartyWithMe.Palladium Life Sciences/faq/OEX754 (This link is being provided for information/ educational purposes only.) TRICHOMONAS VAGINALIS,QUALITAT GATO,PAP VIAL NOT DETECTED NOT DETECTED [facility] Comment: The analytical performance characteristics of this assay have been determined by [facility]. The modifications have not been cleared or approved by the FDA. This assay has been validated pursuant to the CLIA regulations and is used for clinical purposes. For additional information, please refer to http://PartyWithMe.[employer]/ faq/Trichomonastma (This link is being provided for information/ educational purposes only.) Test Performed at: [address] [address] [facility] SWAB OF ENDOCERVIX / Unknown 10/30/2024 12:35 PM CDT 10/31/2024 8:26 PM CDT Mary Wilson MD PATHOLOGY/CYTOLOGY ORDERABLES Final Result [facility] [phone] [place] [address] [place] [address] from Last 3 Months Insurance RX [employer] Express RX [facility] Commercial [facility] [id number] OPEN CHOICE PPO [facility] [facility] EPO Advance Directives For more information, please contact: [phone] * Full Code (Latest Code Status on File) Date Activated Date Inactivated Comments 05/02/2024 7:07 AM 05/02/2024 11:33 AM * Full Code Date Activated Date Inactivated Comments 07/12/2023 6:51 AM 07/15/2023 6:13 PM Care Teams Aml Analyst Relationship Specialty Start Date End Date Adam Monroy DO [address] [phone] PCP - General Family Practice 06/12/23
--- NOTE | 2025-01-23 14:19 | ED_ITS ---
HPI - Skin/Abscess/Foreign Bdy General Chief complaint: Skin/Abscess/Foreign Body Stated complaint: Rash Time Seen by Provider: 01/23/25 14:19 Source: patient Mode of arrival: ambulatory Limitations: no limitations History of Present Illness HPI narrative: 29 yo F presents with c/o itchy rash for about 7 to 8 days. Started to hands and arms which is better and now to lower legs and thighs. Rash started around same time she started new medication for migraines. Stopped medication but continues to have rash which now seems worse. All systems reviewed and negative except as noted above. Related Data Home Medications ?Medication ?Instructions ?Recorded ?Confirmed ?Last Taken ?Type lamotrigine 100 mg tablet mg 01/25/24 Unknown History lisdexamfetamine 30 mg capsule mg 01/25/24 Unknown Hi story sumatriptan succinate 25 mg tablet mg PO 01/25/24 Unk nown History atogepant 60 mg tablet (Qulipta) mg 01/23/25 Unknown History etonogestrel 0.12 mg-ethinyl vag ring vaginal 01/23/25 Unknown History estradiol 0.015 mg/24 hr vaginal ring galcanezumab-gnlm 120 mg/mL mg subcut 01/23/25 Unknow n History subcutaneous pen injector (Emgality Pen) Allergies Allergy/AdvReac Type Severity Reaction Status Date / Time vancomycin Allergy Rash Verified 01/14/25 13:25 PMFSH Comments At time of signature, agree with nursing past medical, surgical, social and family history. There is no relevant family history pertinent to the presenting complaint. Exam Narrative: GENERAL: This is a well-nourished, well-developed patient, in no apparent distress. HEAD: normocephalic, atraumatic. EYES: PERRL. Sclera clear/white. Vision is grossly intact. EARS: External ears normal NOSE: External nose normal NECK: Neck supple, non-tender without lymphadenopathy, masses or thyromegaly. CARDIOVASCULAR: Regular rate and rhythm without murmurs, gallops, or rubs. RESPIRATORY: Clear to auscultation. Breath sounds equal bilaterally. No wheezes, rales, or rhonchi. SKIN: warm, Dry, intact, good texture and turgor. erythematous vesicular rash to bilateral knees, thighs. worse to posterior aspect upper thighs. Some scabbing noted. No signs of infection. NEURO: awake, alert, and oriented to person, place and time. There were no obvious focal neurologic abnormalities. EXTREMITIES: No joint tenderness, effusion, or edema noted. Course Course Level of Care: Express Care Visit Vital Signs Vital signs: Vital Signs Temperature 37.3 C 01/23/25 13:47 Pulse Rate 89 01/23/25 13:47 Respiratory Rate 16 01/23/25 13:47 Blood Pressure 140/86 01/23/25 13:47 Pulse Oximetry 100 01/23/25 13:47 Oxygen Delivery Room Air 01/23/25 13:47 Temperature 37.3 C 01/23/25 13:47 Pulse Rate 89 01/23/25 13:47 Respiratory Rate 16 01/23/25 13:47 Blood Pressure 140/86 01/23/25 13:47 Pulse Oximetry 100 01/23/25 13:47 Oxygen Delivery Room Air 01/23/25 13:47 Reviewed MDM - Skin/Abscess/Foreign Bdy MDM Narrative Medical decision making narrative: presentation of rash similar to a plant dermatitis such as poison ariel. no drainage. no hives. Will treat with prednisone and triamcinolone. Differential Diagnosis Differential diagnosis: Likely urticaria, allergic reaction to drug, insect bites and contact dermatitis Discharge Plan Discharge Clinical Impression: Rash and nonspecific skin eruption Patient Disposition: Home Condition: Stable Instructions: Acute Rash (ED) Additional Instructions: Take medications as prescribed. Take benadryl every 6 hours as needed for itching. This medication may make you drowsy. Do not drive while taking it. Apply steroid cream to affected areas. Avoid face. See your doctor if not improving. Patient Language: Faroese Prescriptions: New prednisone 10 mg tablet See Rx Instructions .ROUTE .COMPLEX Qty: 42 0RF Rx Instructions: Take 6 tablets for 2 days Take 5 tablets for 2 days Take 4 tablets for 2 days Take 3 tablets for 2 days Take 2 tablets for 2 days Take 1 tablet for 2 days triamcinolone acetonide 0.1 % cream 1 applic topical BID Qty: 30 0RF No Action etonogestrel-ethinyl estradiol 0.12-0.015 mg/24 hr ring VAGINAL Emgality Pen 120 mg/mL pen injector SUBCUT Qulipta 60 mg tablet sumatriptan succinate 25 mg tablet PO lamotrigine 100 mg tablet lisdexamfetamine 30 mg capsule Follow-up/Referrals: PHYSICIAN NOT ON STAFF,NONSTAFF [Primary Care Provider] Time of Disposition: 14:27
== END 2025-01-23 14:32 | disposition home or self-care (01) ==
PROVIDERS: Emergency Provider Nurse Practitioner Family
DX: R21 Rash and other nonspecific skin eruption (principal)
CPT/HCPCS: 99213; G0463